=== PATIENT | female | born 1970 | race Caucasian/White ===

== ENCOUNTER 2019-12-26 10:40 | Emergency (ER) | payer BC, OTHER ==
[2019-12-26] MEDS ORDERED: TORAdol 30 mg Injection IV ONE (11:01)
[2019-12-26] MEDS ORDERED: Sodium Chloride 0.9% 1000 ML 1,000 ML IV STA (11:01)
[2019-12-26] MEDS ORDERED: BENADRYL 50 MG/ML IV ONE (11:01)
[2019-12-26] MEDS ORDERED: Zofran 4 MG/2 ML VIAL IV ONE (11:01)
[2019-12-26] MEDS ORDERED: TYLENOL 325 MG PO ONE (11:01)
[2019-12-26] MEDS ORDERED: DUONEB 0.5-3 MG/3 ml Neb IH ONE ×2 (11:07→11:49)
--- NOTE | 2019-12-26 11:10 | ERPHSYRPT ---
- History of Present Illness Time Seen by Provider: 12/26/19 10:55 Source: patient Exam Limitations: no limitations Patient Subjective Stated Complaint: Pt has pain by the right ear and it radiates down the right side of her neck, pt states that she had lost 75 pounds and they took her off of her blood pressure medicine and now her bp is running high, pt gets many head aches and Crystal [place] sent her to get a CT the other day that showed that she had had a stroke at one time, pt does have a cough Triage Nursing Assessment: Pt brought into the ER by her mother, hypertensive, tachycardic, rates head/neck pain 5/10, pulses normal Physician History: Patient has had a right-sided throbbing headache for the past 2 days. Patient has been having chronic headaches, with a CT scan performed 2 days ago by her primary care provider. Timing/Duration: day(s) (2) Quality: throbbing Head Pain Location: temporal, parietal Severity of Pain-Max: moderate Severity of Pain-Current: moderate Recent Head Trauma: no recent headache/trauma Associated Symptoms: neck pain, No confusion, No dizziness, No fatigue, No facial pain, No fever/chills, No flushing, No light-headedness, No loss of consciousness, No nausea/vomiting, No nasal congestion, No nasal drainage, No numbness in legs/feet, No rash, No sweating, No scotoma, No seizures, No sinus infection, No speech problems, No stiff neck, No trouble walking, No vision changes, No visual disturbance, No weakness Previous symptoms: same symptoms as today, recently seen Allergies/Adverse Reactions: No Known Drug Allergies Allergy (Verified 12/26/19 10:57) Home Medications: Levothyroxine Sodium 100 Mcg [Synthroid 100 Mcg] 100 mcg PO DAILY 12/19/16 [History] Dextroamphetamine/Amphetamine [Adderall 15 mg Tablet] 20 mg PO BID 07/15/17 [ History] Citalopram Hydrobromide [Citalopram HBr] 40 mg PO DAILY 12/26/19 [History] Ropinirole HCl 1 mg PO HS 12/26/19 [History] Hx Tetanus, Diphtheria Vaccination/Date Given: Yes Hx Influenza Vaccination/Date Given: Yes (July 2012) Hx Pneumococcal Vaccination/Date Given: No - Review of Systems Constitutional: No Fever, No Chills, No Fatigue, No Malaise Eyes: No Eye Pain, No Photophobia, No Vision Changes, No Double Vision Ears, Nose, & Throat: Ear Pain, No Ear Discharge, No Nose Congestion, No Nose Discharge, No Mouth Pain, No Mouth Swelling, No Throat Pain, No Painful Swallowing Respiratory: Cough, Other (treated with erythromycin, Tessalon perles and Prednisone last week for bronchitis), No Dyspnea Cardiac: No Chest Pain, No Edema, No Syncope Abdominal/Gastrointestinal: No Abdominal Pain, No Nausea, No Vomiting, No Diarrhea, No Hematemesis, No Hematochezia Genitourinary Symptoms: No Dysuria, No Hematuria, No Flank Pain Musculoskeletal: Neck Pain, No Back Pain, No Fall, No Joint Pain Skin: No Induration, No Rash Neurological: Headache, No Dizziness, No Focal Weakness, No Gait Changes, No Irritability, No Parasthesia, No Sensory Changes, No Speech Changes, No Tremors Psychological: No Anxiety, No Emotional Lability Endocrine: No Polyuria Hematologic/Lymphatic: No Easy Bleeding, No Easy Bruising All Other Systems: Reviewed and Negative - Past Medical History Pertinent Past Medical History: Yes Neurological History: Stroke ENT History: No Pertinent History Cardiac History: Other Respiratory History: No Pertinent History Endocrine Medical History: No Pertinent History Musculoskeletal History: No Pertinent History GI Medical History: Gallbladder Disease History: Other Psycho-Social History: Other Female Reproductive Disorders: Cervical Cancer Other Medical History: Kidney stones twice with lithotripsy. Cervical dysplasia with cauterization. Mitral valve prolapse. - Past Surgical History Past Surgical History: Yes Neuro Surgical History: No Pertinent History Cardiac: No Pertinent History Respiratory: No Pertinent History Gastrointestinal: Cholecystectomy Genitourinary: No Pertinent History Musculoskeletal: No Pertinent History Female Surgical History: Other Other Surgical History: Cervical dysplasia with ablation., skin cancer removal and plastic surgery on left eye - Social History Smoking Status: Current every day smoker Exposure to second hand smoke: Yes Drug Use: none Patient Lives Alone: No - Female History Hx Now: No (menopause) - Nursing Vital Signs Nursing Vital Signs: Initial Vital Signs Temperature 97.9 F 12/26/19 10:45 Pulse Rate 105 H 12/26/19 10:45 Blood Pressure 161/121 12/26/19 10:45 O2 Sat by Pulse Oximetry 100 12/26/19 10:45 Pain Scale Pain Intensity 1 - Physical Exam General Appearance: no apparent distress Eye Exam: PERRL/EOMI Ears, Nose, Throat Exam: normal ENT inspection, moist mucous membranes Neck Exam: normal inspection, non-tender, supple, full range of motion, No meningismus, No mass, No Brudzinski, No Kernig's, No JVD, No lymphadenopathy Respiratory Exam: normal breath sounds, lungs clear, airway intact, No respiratory distress, No diminished breath sounds, No accessory muscle use, No crackles/rales, No rhonchi, No wheezing Cardiovascular Exam: regular rate/rhythm, normal heart sounds, normal peripheral pulses, capillary refill <2 sec Gastrointestinal/Abdominal Exam: soft, No tenderness, No distention, No mass, No guarding Back Exam: normal inspection, normal range of motion, No CVA tenderness, No vertebral tenderness Extremity Exam: normal inspection, normal range of motion, pelvis stable Mental Status Exam: alert, oriented x 3, 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 Exam: normal speech, PERRL, No facial droop Coordination/Gait Exam: normal cerebellar function Motor/Sensory Exam: no motor deficit, no sensory deficit, No weak motor strength RUE, No weak motor strength LUE, No weak motor strength RLE, No weak motor strength LLE Skin Exam: normal color, warm, dry, No rash, No petechiae, No jaundice, No cyanosis Lymphatic Exam: No adenopathy SpO2 Interpretation: normal SpO2: 100 O2 Delivery: Room Air - Course Nursing assessment & vital signs reviewed: Yes - Radiology Exams C-Spine X-ray Interpretation: Interpreted by me, Reviewed by me, Nml Alignment, Nml Soft Tissues, Other (DDD from C5-T1; spondylolisthesis at C4-C5) Chest X-ray Interpretation: Interpreted by me, Reviewed by me, No Fracture ( and aa), No Subluxation (and a), No Pneumonia, No Pneumothorax, No Infiltrates, Nml Mediastinum, Nml Soft Tissues - CT Exams Head CT Interpretation: Other (Impression: Remote left basal ganglia lacunar infarct. Remaining CT head negative per Radiologist report on 12/24/2019) Ordered Tests: Active Orders 24 hr Category Date Time Status IV Insertion STAT Care 12/26/19 11:01 Active CERVICAL SPINE (2 OR 3 VIEW) Stat Exams 12/26/19 11:04 Ordered CHEST 1 VIEW (PORTABLE) Stat Exams 12/26/19 11:06 Ordered CBC W DIFF Stat Lab 12/26/19 11:01 Completed CMP Stat Lab 12/26/19 11:01 Completed Manual Differential NC Stat Lab 12/26/19 11:01 Completed Peak Expiratory Flow Rate ONCE RT 12/26/19 11:52 Completed Respiratory Therapy Assessment DAILY RT 12/26/19 11:52 Completed Medication Summary Discontinued Medications Generic Name Dose Route Start Last Admin Trade Name Luciana PRN Reason Stop Dose Admin Acetaminophen 975 mg 12/26/19 11:01 12/26/19 11:16 Tylenol 325 Mg PO 12/26/19 11:02 975 mg STAT ONE Administration Acetaminophen Confirm 12/26/19 11:14 Tylenol 325 Mg Administered 12/26/19 11:15 Dose 975 mg .ROUTE .STK-MED ONE Albuterol/Ipratropium 3 ml 12/26/19 11:07 12/26/19 11:51 Duoneb 0.5-3 Mg/3 Ml Neb IH 12/26/19 11:08 3 ml STAT ONE Administration Albuterol/Ipratropium Confirm 12/26/19 11:49 Duoneb 0.5-3 Mg/3 Ml Neb Administered 12/26/19 11:50 Dose 3 ml IH .STK-MED ONE Diphenhydramine HCl 25 mg 12/26/19 11:01 12/26/19 11:16 Benadryl 50 Mg/Ml IV 12/26/19 11:02 25 mg STAT ONE Administration Diphenhydramine HCl Confirm 12/26/19 11:14 Benadryl 50 Mg/Ml Administered 12/26/19 11:15 Dose 50 mg .ROUTE .STK-MED ONE Hydromorphone HCl 1 mg 12/26/19 11:01 12/26/19 11:31 Hydromorphone 1 Mg/Ml Ampule IV 12/26/19 11:02 Not Given STAT ONE Hydromorphone HCl Confirm 12/26/19 11:14 Hydromorphone 1 Mg/Ml Ampule Administered 12/26/19 11:15 Dose 1 mg .ROUTE .STK-MED ONE Sodium Chloride 1,000 mls @ 999 mls/hr 12/26/19 11:01 12/26/19 11:15 Sodium Chloride 0.9% 1000 Ml IV 12/26/19 12:01 999 mls/hr .Q1H1M STA Administration Sodium Chloride Confirm 12/26/19 11:14 Sodium Chloride 0.9% 1000 Ml Administered 12/26/19 11:15 Dose 1,000 mls @ ud .ROUTE .STK-MED ONE Ketorolac Tromethamine 30 mg 12/26/19 11:01 12/26/19 11:16 Toradol 30 Mg Injection IV 12/26/19 11:02 30 mg STAT ONE Administration Ketorolac Tromethamine Confirm 12/26/19 11:14 Toradol 30 Mg Injection Administered 12/26/19 11:15 Dose 30 mg .ROUTE .STK-MED ONE Ondansetron HCl 4 mg 12/26/19 11:01 12/26/19 11:16 Zofran 4 Mg/2 Ml Vial IV 12/26/19 11:02 4 mg STAT ONE Administration Ondansetron HCl Confirm 12/26/19 11:14 Zofran 4 Mg/2 Ml Vial Administered 12/26/19 11:15 Dose 4 mg .ROUTE .STK-MED ONE Potassium Chloride 40 meq 12/26/19 11:50 Klor Con 10 Meq PO 12/26/19 11:51 STAT ONE Lab/Rad Data: Laboratory Result Diagrams 12/26/19 11:01 12/26/19 11:01 Laboratory Results 12/26/19 12/26/19 Range/Units 11:01 11:01 WBC 12.1 H (4.0-10.5) K/mm3 RBC 4.80 (4.1-5.4) M/mm3 Hgb 13.9 (12.0-16.0) gm/dl Hct 42.3 (35-47) % MCV 88.1 (78-100) fl MCH 29.0 (26-32) pg MCHC 32.9 (32-36) g/dl RDW 14.5 H (11.5-14.0) % Plt Count 311 (150-450) K/mm3 MPV 10.0 (7.5-11.0) fl Sodium 140 (137-145) mmol/L Potassium 3.2 L (3.5-5.1) mmol/L Chloride 103 (98-107) mmol/L Carbon Dioxide 31 H (22-30) mmol/L Anion Gap 8.9 (5-15) MEQ/L BUN 17 (7-17) mg/dL Creatinine 0.83 (0.52-1.04) mg/dL Estimated GFR > 60.0 ML/MIN Glucose 107 H (74-106) mg/dL Calcium 9.4 (8.4-10.2) mg/dL Total Bilirubin 0.40 (0.2-1.3) mg/dL AST 36 (14-36) U/L ALT 17 (0-35) U/L Alkaline Phosphatase 87 (38-126) U/L Serum Total Protein 7.6 (6.3-8.2) g/dL Albumin 4.2 (3.5-5.0) g/dL - Progress Progress: re-examined Air Movement: good Progress Note: 12/26/19 12:12 pain has resolved;no neurologic deficits; the patient is afebrile, hemodynamically in good condition with resolution of tachycardia; clear to auscultation throughout with improved air flow throughout with no wheeze, rales , crackles on repeat examination. 12/26/19 12:22 patient has had a headache oover last few days which is a flare of her chronic type headaches. Clinically, it is very consistent with a migraine-type headache. Patient had a CT scan of the head 2 days ago that was negative for any acute features, but did show signs of an old infarct. Patient x-rays of her neck and she complains of some pain in her neck and no signs of any other infectious etiology, and the x-ray did show some signs of degenerative disc disease. A chest x-ray was also pperformed as patient had a cough over the past week and was placed on antibiotics, so she was treated with DuoNeb treatment and it was interpreted as a negative chest x-ray per my interpretation. patient not require any other lab work or imaging studies at this time regarding need for a lumbar puncture due to her clinical picture is very low risk for infectious or vascular etiology causing her symptoms. Patient discharged home as her headache was resolved with IV fluids and IV medications in the emergency department. Patient is to followup with her dentist as well as her primary care provider to continue evaluating other potential etiologies of her headaches.. I reviewed with the patient and her family in detail what signs and symptoms to return back to the emergency department. Blood Culture(s) Obtained: No Antibiotics given: No Counseled pt/family regarding: lab results, diagnosis, need for follow-up, rad results - Departure Departure Disposition: Home Clinical Impression: Elevated blood pressure reading without diagnosis of hypertension, Hypokalemia Migraine headache without aura Qualifiers: Status migrainosus presence: with status migrainosus Intractability: not intractable Qualified Code(s): G43.001 - Migraine without aura, not intractable , with status migrainosus Acute bronchitis Qualifiers: Bronchitis organism: unspecified organism Qualified Code(s): J20.9 - Acute bronchitis, unspecified Condition: Good Critical Care Time: No Referrals: NURIA CUBA [Primary Care Provider] - 12/28/19 Instructions: DASH Diet, Acute Bronchitis, Adult (DC), Headache, Adult (DC), Hypokalemia (DC) Additional Instructions: Followup with your dentist who fitted you in 2 days.Return immediately back to the emergency Department if any worse headache, new fever, new change in mental status,or new neck pain, new skin rash, or any other concerning signs or symptoms that were not present at todays emergency Department visit for immediate reevaluation in the emergency department. Prescriptions: Albuterol Sulfate [Proair Hfa] 8.5 gm IH Q4H PRN PRN #1 [email or web address] PRN Reason: Wheezing/Chest Congestion Etodolac 400 mg [Lodine 400 mg] 400 mg PO BID PRN PRN #20 tablet PRN Reason: Pain
[2019-12-26] MEDS ORDERED: TORAdol 30 mg Injection ONE (11:14)
[2019-12-26] MEDS ORDERED: BENADRYL 50 MG/ML ONE (11:14)
[2019-12-26] MEDS ORDERED: Sodium Chloride 0.9% 1000 ML 1,000 ML ONE (11:14)
[2019-12-26] MEDS ORDERED: Zofran 4 MG/2 ML VIAL ONE (11:14)
[2019-12-26] MEDS ORDERED: Hydromorphone 1 mg/ml Ampule ONE (11:14)
[2019-12-26] MEDS ORDERED: TYLENOL 325 MG ONE (11:14)
[2019-12-26] MEDS: Hydromorphone 1 mg/ml Ampule IV ONE ×2 (11:16→11:31)
[2019-12-26 11:18] LABS: Hematocrit 42.3 % (35-47); Hemoglobin 13.9 gm/dl (12.0-16.0); Mean Cell Volume 88.1 fl (78-100); Mean Corpuscular Hgb Concent. 32.9 g/dl (32-36); Platelet Count 311 K/mm3 (150-450); Red Cell Distribution Width 14.5 % (11.5-14.0); White Blood Count 12.1 K/mm3 (4.0-10.5)
[2019-12-26 11:40] LABS: ALBUMIN 4.2 g/dL (3.5-5.0); ALKALINE PHOSPHATASE 87 U/L (38-126); ANION GAP 8.9 MEQ/L (5-15); BLOOD UREA NITROGEN 17 mg/dL (7-17); CHLORIDE 103 mmol/L (98-107); Calcium 9.4 mg/dL (8.4-10.2); Carbon Dioxide 31 mmol/L (22-30); Creatinine 1 0.83 mg/dL (0.52-1.04); Glucose 107 mg/dL (74-106); Potassium 3.2 mmol/L (3.5-5.1); SGOT/AST 36 U/L (14-36); SGPT/ALT 17 U/L (0-35); SODIUM 140 mmol/L (137-145); Total Protein 7.6 g/dL (6.3-8.2)
[2019-12-26 11:43] VITALS: BP 148/109
[2019-12-26] MEDS ORDERED: Klor Con 10 MEQ PO ONE ×2 (11:50→12:22)
[2019-12-26 12:04] VITALS: PULSE 91
[2019-12-26 12:13] VITALS: O2SAT 100
[2019-12-26 13:59] LABS: ATYPICAL LYMPHS 4 %; BAND 3 % (0.0-2.0); Eosinophil 1 % (0.00-3.0); Lymphocytes 39 % (24-44); Monocyte 1 % (0.0-12.0); Neutrophils 52 % (36.0-66.0); Total Cells Counted 100
[2019-12-26 14:00] LABS: ANISOCYTOSIS 1+; Platelet Estimate NORMAL (NORMAL); Toxic Granulation 1+
--- NOTE | 2019-12-26 20:52 | XRAY ---
Indication: Neck pain and headache. No known injury. Comparison: December 11, 2011. 3 views of the cervical spine again demonstrates very minimal C4 anterolisthesis. Worsening mild/moderate C5-T1 degenerative disc disease and mild scoliosis. No acute fracture, subluxation, or soft tissue abnormalities. Patient is edentulous. Impression: Nonacute cervical spine with chronic features.
--- NOTE | 2019-12-26 20:55 | XRAY ---
Indication: Cough. Comparison: December 19, 2016. Portable chest remains clear. Heart and mediastinal structures within normal limits. Bony thorax intact with new finding for old left 7 rib fracture. Stable scoliosis. Impression: Nonacute chest with chronic features.
== END 2019-12-26 12:29 | disposition home or self-care (01) ==
LOC: ED 10:40
DX: R03.0 Elevated blood-pressure reading, without diagnosis of hypertension (principal); E87.6 Hypokalemia; G43.001 Migraine without aura, not intractable, with status migrainosus; J20.9 Acute bronchitis, unspecified; M54.2 Cervicalgia; Z79.899 Other long term (current) drug therapy; R05 Cough
CPT/HCPCS: 36000; 36415; 71045; 72040; 80053; 85025; 94150; 94640; 96375; 99284; J1170; J1200; J1885; J2405; A9270-GY

== ENCOUNTER 2021-07-30 18:54 | Emergency (ER) | payer OTHER ==
[2021-07-30] MEDS ORDERED: TORAdol 30 mg Injection IV ONE (19:29)
[2021-07-30] MEDS ORDERED: Sodium Chloride 0.9% 500 ML 500 ML IV ONE ×2 (19:30→19:31)
[2021-07-30] MEDS ORDERED: TORAdol 30 mg Injection ONE (19:31)
[2021-07-30 19:52] LABS: Absolute Neutrophil Ct (ANC) 5.51 (1.4-6.9); BASOPHIL % 0.3 % (0.0-0.4); Basophil (Absolute #) 0.03 (0-0.4); Eosinophil % 2.7 % (0.00-5.0); Eosinophil (Absolute #) 0.28 (0-0.5); Hematocrit 43.6 % (35-47); Hemoglobin 13.9 gm/dl (12.0-16.0); Lymphocytes % 37.2 % (24.0-44.0); Mean Cell Volume 93.2 fl (78-100); Mean Corpuscular Hemoglobin 29.7 pg (26-32); Mean Corpuscular Hgb Concent. 31.9 g/dl (32-36); Monocyte (Absolute #) 0.77 (0.0-1.3); Monocytes % 7.3 % (0.0-12.0); Neutrophil % 52.5 % (36.0-66.0); Platelet Count 271 K/mm3 (150-450); Red Blood Count 4.68 M/mm3 (4.1-5.4); Red Cell Distribution Width 14.3 % (11.5-14.0); White Blood Count 10.5 K/mm3 (4.0-10.5)
[2021-07-30 20:00] LABS: Appearance CLOUDY (CLEAR); Bacteria MODERATE /HPF (NEGATIVE); Bilirubin NEGATIVE (NEGATIVE); Blood NEGATIVE Ery/ul (0-5); Calcium Oxalate Crystals 26-50 /HPF (NEGATIVE); Epithelial Cells FEW /HPF (FEW); Glucose NEGATIVE (NEGATIVE); Ketones TRACE (NEGATIVE); Leukocyte Esterase LARGE (NEGATIVE); Mucus SLIGHT /HPF (NEGATIVE); Nitrite NEGATIVE (NEGATIVE); Protein,Urine Dip 100 (Negative); RBC 51-100 /HPF (0-2); Specific Gravity 1.031 (1.005-1.025); Urobilinogen NEGATIVE mg/dL (0-1); WBC >100 /HPF (0-5)
[2021-07-30 20:02] LABS: ALBUMIN 4.5 g/dL (3.5-5.0); ALKALINE PHOSPHATASE 68 U/L (38-126); ANION GAP 14.2 MEQ/L (5-15); BLOOD UREA NITROGEN 17 mg/dL (7-17); CHLORIDE 104 mmol/L (98-107); Calcium 9.7 mg/dL (8.4-10.2); Carbon Dioxide 27 mmol/L (22-30); Creatinine 1 0.93 mg/dL (0.52-1.04); EST GLOMERULAR FILTRATION RATE > 60.0 ML/MIN; Glucose 98 mg/dL (74-106); LIPASE 69 U/L (23-300); Potassium 3.4 mmol/L (3.5-5.1); SGOT/AST 33 U/L (14-36); SGPT/ALT 16 U/L (0-35); SODIUM 142 mmol/L (137-145); Total Protein 7.6 g/dL (6.3-8.2)
[2021-07-30] MEDS ORDERED: ROCEPHIN 2 Gm-D5w 50ML BAG** 2 G/50 ML IVPB IV STA (20:35)
--- NOTE | 2021-07-30 20:38 | ERPHSYRPT ---
- History of Present Illness Time Seen by Provider: 07/30/21 19:08 Historian: patient Exam Limitations: no limitations Patient Subjective Stated Complaint: pt states she has been having lt lower back and groin pain for 3-4 days. Triage Nursing Assessment: pt alert and oriented, answers questions approp. pt ambulatory with steady gait noted. skin warm and dry. respirations nonlabored. abd soft and nontender to light palpation. bowel sounds present x4 quads. Physician History: 51 years old female presented in the ER with chief complaint of left flank pain for the last 2 to 3 days, moderate to severe intensity, sharp nature, radiating to left groin with associated mild nausea but no vomiting. Denies any urinary symptoms. Patient does report laxative abuse. No fever or chills reported. Does have a history of kidney stone needing lithotripsy. Timing/Duration: day(s) (2), gradual onset, worse Activities at Onset: rest Quality: sharpness Abdominal Pain Onset Location: flank Pain Radiation: groin Severity of Pain-Max: moderate Severity of Pain-Current: moderate Modifying Factors: Worsens With: movement, palpation, position Associated Symptoms: back, nausea Previous symptoms: same symptoms as today Allergies/Adverse Reactions: No Known Drug Allergies Allergy (Verified 07/30/21 19:28) Home Medications: Levothyroxine Sodium 100 Mcg [Synthroid 100 Mcg] 88 mcg PO DAILY 12/19/16 [History] Dextroamphetamine/Amphetamine [Adderall 15 mg Tablet] 20 mg PO BID 07/15/17 [History] Citalopram Hydrobromide [Citalopram HBr] 40 mg PO DAILY 12/26/19 [History] Ropinirole HCl 1 mg PO HS 12/26/19 [History] Calcium Carbonate/Vitamin D3 [Calcium 600 + Vit D Caplet] 1 each PO DAILY 07/30/21 [History] Metoprolol Succinate 50 mg [Toprol Xl 50 MG] 50 mg PO DAILY 07/30/21 [History] Potassium Chloride 10 Meq Tab* [Klor Con 10 MEQ] 20 meq PO DAILY 07/30/21 [History] Hx Tetanus, Diphtheria Vaccination/Date Given: Yes Hx Influenza Vaccination/Date Given: No Hx Pneumococcal Vaccination/Date Given: No Immunizations Up to Date: Yes Travel Risk - International Travel Have you traveled outside of the country in past 3 weeks: No - Coronavirus Screening Are you exhibiting any of the following symptoms?: No Close contact with a COVID-19 positive Pt in past 14-21 Days: No - Vaccine Status Have you recieved a Covid-19 vaccination: No - Review of Systems Constitutional: No Symptoms Eyes: No Symptoms Ears, Nose, & Throat: No Symptoms Respiratory: No Symptoms Cardiac: No Symptoms Abdominal/Gastrointestinal: Abdominal Pain, Nausea Genitourinary Symptoms: Flank Pain Musculoskeletal: No Symptoms Skin: No Symptoms Neurological: No Symptoms Psychological: No Symptoms Endocrine: No Symptoms Hematologic/Lymphatic: No Symptoms Immunological/Allergic: No Symptoms - Past Medical History Pertinent Past Medical History: Yes Neurological History: Stroke ENT History: No Pertinent History Cardiac History: Other Respiratory History: No Pertinent History Endocrine Medical History: No Pertinent History Musculoskeletal History: Rheumatoid Arthritis GI Medical History: Gallbladder Disease History: Other Psycho-Social History: Other Female Reproductive Disorders: Cervical Cancer Other Medical History: Kidney stones twice with lithotripsy. Cervical dysplasia with cauterization. Mitral valve prolapse. - Past Surgical History Past Surgical History: Yes Neuro Surgical History: No Pertinent History Cardiac: No Pertinent History Respiratory: No Pertinent History Gastrointestinal: Cholecystectomy Genitourinary: No Pertinent History Musculoskeletal: No Pertinent History Female Surgical History: Other Other Surgical History: Cervical dysplasia with ablation., skin cancer removal and plastic surgery on left eye - Social History Smoking Status: Current every day smoker How long have you smoked: 4yrs+ Exposure to second hand smoke: Yes Drug Use: none Patient Lives Alone: No - Female History Hx Now: No - Nursing Vital Signs Nursing Vital Signs: Initial Vital Signs Temperature 98.5 F 07/30/21 19:08 Pulse Rate 91 H 07/30/21 19:08 Respiratory Rate 16 07/30/21 19:08 Blood Pressure 139/94 07/30/21 19:08 O2 Sat by Pulse Oximetry 97 07/30/21 19:08 Pain Scale Pain Intensity 7 - Physical Exam General Appearance: no apparent distress Eye Exam: PERRL/EOMI Ears, Nose, Throat Exam: normal ENT inspection Neck Exam: normal inspection, full range of motion Respiratory Exam: normal breath sounds, lungs clear Cardiovascular Exam: regular rate/rhythm, normal heart sounds Gastrointestinal/Abdomen Exam: soft, normal bowel sounds, tenderness (Left flank/left lower quadrant without rebound tenderness. Positive CVA tenderness on the left) Back Exam: normal inspection, normal range of motion, CVA tenderness Extremity Exam: normal inspection, normal range of motion Neurologic Exam: alert, oriented x 3, cooperative Skin Exam: normal color SpO2 Interpretation: normal SpO2: 97 O2 Delivery: Room Air Ordered Tests: Active Orders 24 hr Category Date Time Status IV Insertion STAT Care 07/30/21 19:29 Active NPO (ED) STAT Care 07/30/21 19:29 Active ABDOMEN AND PELVIS W/0 CONTRAS [CT] Stat Exams 07/30/21 19:29 Taken CBC W DIFF Stat Lab 07/30/21 19:31 Completed CMP Stat Lab 07/30/21 19:31 Completed CULTURE,URINE Stat Lab 07/30/21 19:31 Received LIPASE Stat Lab 07/30/21 19:31 Completed UA W/RFX UR CULTURE Stat Lab 07/30/21 19:31 Completed Medication Summary Discontinued Medications Generic Name Dose Route Start Last Admin Trade Name Freq PRN Reason Stop Dose Admin Hydrocodone Bitart/Acetaminophen 1 tab 07/30/21 21:32 07/30/21 21:34 [place] 5/325 Mg PO 07/30/21 21:33 1 tab STAT ONE Administration Hydrocodone Bitart/Acetaminophen Confirm 07/30/21 21:33 [place] 5/325 Mg Administered 07/30/21 21:34 Dose 1 tab .ROUTE .STK-MED ONE Sodium Chloride 500 mls @ 500 mls/hr 07/30/21 19:30 07/30/21 20:34 Sodium Chloride 0.9% 500 Ml IV 07/30/21 20:29 Infused .Q1H ONE Infusion Sodium Chloride Confirm 07/30/21 19:31 Sodium Chloride 0.9% 500 Ml Administered 07/30/21 19:32 Dose 500 mls @ ud IV .STK-MED ONE Ceftriaxone Sodium/Dextrose 2 g in 50 mls @ 100 mls/hr 07/30/21 20:35 07/30/21 21:29 Rocephin 2 Gm-D5w 50ml Bag IV 07/30/21 21:04 Infused STAT STA Infusion Ceftriaxone Sodium/Dextrose Confirm 07/30/21 20:57 Rocephin 2 Gm-D5w 50ml Bag Administered 07/30/21 20:58 Dose 2 g in 50 mls @ ud IV .STK-MED ONE Ketorolac Tromethamine 30 mg 07/30/21 19:29 07/30/21 19:34 Toradol 30 Mg Injection IV 07/30/21 19:30 30 mg STAT ONE Administration Ketorolac Tromethamine Confirm 07/30/21 19:31 Toradol 30 Mg Injection Administered 07/30/21 19:32 Dose 30 mg .ROUTE .STK-MED ONE Lab/Rad Data: Laboratory Result Diagrams 07/30/21 19:31 07/30/21 19:31 Laboratory Results 07/30/21 07/30/21 07/30/21 Range/Units 19:31 19:31 19:31 WBC 10.5 (4.0-10.5) K/mm3 RBC 4.68 (4.1-5.4) M/mm3 Hgb 13.9 (12.0-16.0) gm/dl Hct 43.6 (35-47) % MCV 93.2 (78-100) fl MCH 29.7 (26-32) pg MCHC 31.9 L (32-36) g/dl RDW 14.3 H (11.5-14.0) % Plt Count 271 (150-450) K/mm3 MPV 11.0 (7.5-11.0) fl Gran % 52.5 (36.0-66.0) % Eos # (Auto) 0.28 (0-0.5) Absolute Lymphs (auto) 3.90 (1.0-4.6) Absolute Monos (auto) 0.77 (0.0-1.3) Lymphocytes % 37.2 (24.0-44.0) % Monocytes % 7.3 (0.0-12.0) % Eosinophils % 2.7 (0.00-5.0) % Basophils % 0.3 (0.0-0.4) % Absolute Granulocytes 5.51 (1.4-6.9) Basophils # 0.03 (0-0.4) Sodium 142 (137-145) mmol/L Potassium 3.4 L (3.5-5.1) mmol/L Chloride 104 (98-107) mmol/L Carbon Dioxide 27 (22-30) mmol/L Anion Gap 14.2 (5-15) MEQ/L BUN 17 (7-17) mg/dL Creatinine 0.93 (0.52-1.04) mg/dL Estimated GFR > 60.0 ML/MIN Glucose 98 (74-106) mg/dL Calcium 9.7 (8.4-10.2) mg/dL Total Bilirubin 0.40 (0.2-1.3) mg/dL AST 33 (14-36) U/L ALT 16 (0-35) U/L Alkaline Phosphatase 68 (38-126) U/L Serum Total Protein 7.6 (6.3-8.2) g/dL Albumin 4.5 (3.5-5.0) g/dL Lipase 69 (23-300) U/L Urine Color FRANCES (YELLOW) Urine Appearance CLOUDY (CLEAR) Urine pH 5.0 (5-6) Ur Specific [place] 1.031 (1.005-1.025) Urine Protein 100 (Negative) Urine Ketones TRACE (NEGATIVE) Urine Blood NEGATIVE (0-5) Tomas/ul Urine Nitrite NEGATIVE (NEGATIVE) Urine Bilirubin NEGATIVE (NEGATIVE) Urine Urobilinogen NEGATIVE (0-1) mg/dL Ur Leukocyte Esterase LARGE (NEGATIVE) Urine WBC (Auto) >100 (0-5) /HPF Urine RBC (Auto) 51-100 (0-2) /HPF U Epithel Cells (Auto) FEW (FEW) /HPF Urine Bacteria (Auto) MODERATE (NEGATIVE) /HPF Calcium Oxalate Crystal 26-50 (NEGATIVE) /HPF Urine Mucus (Auto) SLIGHT (NEGATIVE) /HPF Urine Culture Reflexed YES (NO) Urine Glucose NEGATIVE (NEGATIVE) mg/dL - Progress Progress: improved, re-examined Progress Note: 07/30/21 21:51 She is given fluids and symptomatic treatment for pain, reevaluation feeling much better. She had normal white count, grossly unremarkable chemistry. Does have UTI with hematuria and given dose of antibiotic. CT negative for any acute obstructive uropathy. No other acute findings. Is quite possible that she might have passed a stone recently. I would continue with antibiotics and ibuprofen to go home and outpatient follow-up recommended. Discussed signs symp toms of worsening needing return to ER which she seems understanding. Stable for discharge. Counseled pt/family regarding: diagnosis, need for follow-up, rad results - Departure Departure Disposition: Home Clinical Impression: Acute UTI, Left flank pain Condition: Stable Critical Care Time: No Referrals: NURIA PERALES NP [Primary Care Provider] - Follow Up with PCP/3 days Instructions: Kidney Stones (DC), Flank Pain Additional Instructions: Take Tylenol/ibuprofen as needed. Continue with antibiotics. Follow-up with your primary care for reevaluation. Return to ER for worsening pain or if develop fever chills, intractable nausea vomiting etc. Prescriptions: Ibuprofen 600 mg PO Q6HPRN PRN 10 Days #20 tablet PRN Reason: Pain Ciprofloxacin [Cipro 500 MG] 500 mg PO BID #14 tablet
[2021-07-30] MEDS ORDERED: ROCEPHIN 2 Gm-D5w 50ML BAG** 2 G/50 ML IVPB IV ONE (20:57)
[2021-07-30] MEDS ORDERED: NORCO 5/325 MG PO ONE (21:32)
[2021-07-30] MEDS ORDERED: NORCO 5/325 MG ONE (21:33)
[2021-07-30 22:07] VITALS: BP 123/73; PULSE 68; O2SAT 98
--- NOTE | 2021-07-31 08:48 | XRAY ---
Indication: Left flank pain. Multiple contiguous axial images obtained through the abdomen and pelvis without contrast. Comparison: December 29, 2014. Lungs demonstrates minimal bibasilar subsegmental atelectasis/scarring. No infiltrate or effusion. Heart is not enlarged. Stomach is distended with food/fluid. Increasing 11 mm left renal calculus and 2-3 new right renal calculi largest 9 mm. No hydronephrosis or hydroureter. Again cholecystectomy and splenic calcified granulomas. No free fluid/air. Remaining liver, pancreas, spleen, adrenal glands, kidneys, ureters, bladder, and uterus are unremarkable for noncontrast exam. Again minimal aortic calcifications without AAA. Osseous structures intact again with mild dextrorotoscoliosis centered at L3, mild/moderate multilevel lumbar degenerative spondylosis, and L5 spondylolysis with grade 1 spondylolisthesis. Impression: 1. Worsening bilateral renal micro-calculi. Negative for obstructive uropathy. 2. Again chronic bony findings old granulomatous disease. 3. Remaining CT abdomen/pelvis without contrast exam is negative. Comment: Preliminary interpretation made by [facility]. No critical discrepancy.
== END 2021-07-30 22:10 | disposition home or self-care (01) ==
LOC: ED 18:54
DX: N39.0 Urinary tract infection, site not specified (principal); R10.9 Unspecified abdominal pain; R11.0 Nausea
CPT/HCPCS: 36000; 36415; 74176; 80053; 81001; 83690; 85025; 87077; 87086; 87186; 96374; 96375; 99284; J0696; J1885; A9270-GY

== ENCOUNTER 2021-08-07 19:31 | Emergency (ER) | payer OTHER ==
[2021-08-07] MEDS ORDERED: TORAdol 30 mg Injection IV ONE (19:48)
[2021-08-07] MEDS ORDERED: Sodium Chloride 0.9% 1000 ML 1,000 ML IV STA (19:48)
[2021-08-07] MEDS ORDERED: Sodium Chloride 0.9% 1000 ML 1,000 ML ONE (20:03)
[2021-08-07] MEDS ORDERED: TORAdol 30 mg Injection ONE (20:03)
[2021-08-07 20:08] LABS: Appearance SLIGHTLY CLOUDY (CLEAR); Bacteria FEW /HPF (NEGATIVE); Bilirubin NEGATIVE (NEGATIVE); Blood SMALL Ery/ul (0-5); Calcium Oxalate Crystals 0-2 /HPF (NEGATIVE); Epithelial Cells FEW /HPF (FEW); Glucose NEGATIVE (NEGATIVE); Ketones NEGATIVE (NEGATIVE); Leukocyte Esterase LARGE (NEGATIVE); Mucus SLIGHT /HPF (NEGATIVE); Nitrite NEGATIVE (NEGATIVE); Protein,Urine Dip 100 (Negative); RBC 26-50 /HPF (0-2); Specific Gravity 1.024 (1.005-1.025); Urobilinogen NEGATIVE mg/dL (0-1); WBC 51-100 /HPF (0-5)
--- NOTE | 2021-08-07 20:13 | ERPHSYRPT ---
- History of Present Illness Time Seen by Provider: 08/07/21 19:35 Historian: patient Exam Limitations: no limitations Patient Subjective Stated Complaint: Patient states " I continue to have severe back and left flank pain despite ATB for UTI and non-obstructing stones and I don't know what else to do." Triage Nursing Assessment: Patient arrived to ED and ambulated to room with holding onto left side. Patient did give urine sample prior to going into room. Urine yellow in color slightly cloudy. Patient was in ER 07/30/21 and was DX with UTI and kidney stones. Patient was placed on ATB and then she seen PCP couple days later and they switched ATB R/T culture. Patient denies any pain or burning upon urination. Patient with ABD pain on left side when RN palpitated and pain radiated to left flank. Patient denies any injury or trauma to ABD or flank. Patient denies any N/V. Patient denies any indigestion. Patient states appetite and fluid intake is normal. Physician History: Patient is a 51-year-old female presents to our ED for evaluation of left-sided flank pain. Patient was in our ED on the approximately 8 days ago for the same. She was diagnosed with nonobstructing bilateral kidney stones and a u rinary tract infection. Patient was started on ciprofloxacin. Patient states she has been experiencing ongoing pain. Cultures and sensitivities show sensitivity to Levaquin. Patient follow-up with her primary provider 2 days ago. Patient was switched from ciprofloxacin to Bactrim. Patient has been on Bactrim for the past 2 days. Patient's pain described as an ache has localized to the left flank. Pain rated 10 out of 10. No interval trauma no fever. No nausea or vomiting. Symptoms are mild to moderate in intensity. Percussion to left CVA produces pain. Patient denies associated chest pain no nausea or vomiting. No diaphoresis. No diarrhea. No rash. Patient voices no other co mplaints or concerns at this time. Timing/Duration: week(s) (8 days) Activities at Onset: none Quality: aching Abdominal Pain Onset Location: flank, other (Left flank) Pain Radiation: no radiation Severity of Pain-Max: moderate Severity of Pain-Current: mild Modifying Factors: Improves With: palpation Associated Symptoms: denies symptoms Previous symptoms: same symptoms as today Allergies/Adverse Reactions: No Known Drug Allergies Allergy (Verified 07/30/21 19:28) Home Medications: Levothyroxine Sodium 100 Mcg [Synthroid 100 Mcg] 88 mcg PO DAILY 12/19/16 [History] Dextroamphetamine/Amphetamine [Adderall 15 mg Tablet] 20 mg PO BID 07/15/17 [History] Citalopram Hydrobromide [Citalopram HBr] 40 mg PO DAILY 12/26/19 [History] Ropinirole HCl 1 mg PO HS 12/26/19 [History] Calcium Carbonate/Vitamin D3 [Calcium 600 + Vit D Caplet] 1 each PO DAILY 07/30/21 [History] Metoprolol Succinate 50 mg [Toprol Xl 50 MG] 50 mg PO DAILY 07/30/21 [History] Potassium Chloride 10 Meq Tab* [Klor Con 10 MEQ] 20 meq PO DAILY 07/30/21 [History] Hx Tetanus, Diphtheria Vaccination/Date Given: Yes Hx Influenza Vaccination/Date Given: No Hx Pneumococcal Vaccination/Date Given: No Immunizations Up to Date: Yes Travel Risk - International Travel Have you traveled outside of the country in past 3 weeks: No - Coronavirus Screening Close contact with a COVID-19 positive Pt in past 14-21 Days: No - Vaccine Status Have you recieved a Covid-19 vaccination: No - Review of Systems Constitutional: No Symptoms, No Fever, No Chills Eyes: No Symptoms Ears, Nose, & Throat: No Symptoms Respiratory: No Symptoms, No Cough, No Dyspnea Cardiac: No Symptoms, No Chest Pain, No Edema, No Syncope Abdominal/Gastrointestinal: No Symptoms, No Abdominal Pain, No Nausea, No Vomiting, No Diarrhea Genitourinary Symptoms: No Symptoms, No Dysuria Musculoskeletal: No Symptoms, No Back Pain, No Neck Pain Skin: No Symptoms, No Rash Neurological: No Symptoms, No Dizziness, No Focal Weakness, No Sensory Changes Psychological: No Symptoms Endocrine: No Symptoms Hematologic/Lymphatic: No Symptoms Immunological/Allergic: No Symptoms All Other Systems: Reviewed and Negative - Past Medical History Pertinent Past Medical History: Yes Neurological History: Stroke ENT History: No Pertinent History Cardiac History: Other Respiratory History: No Pertinent History Endocrine Medical History: No Pertinent History Musculoskeletal History: Rheumatoid Arthritis GI Medical History: Gallbladder Disease History: Other Psycho-Social History: Other Female Reproductive Disorders: Cervical Cancer Other Medical History: Kidney stones twice with lithotripsy. Cervical dysplasia with cauterization. Mitral valve prolapse. - Past Surgical History Past Surgical History: Yes Neuro Surgical History: No Pertinent History Cardiac: No Pertinent History Respiratory: No Pertinent History Gastrointestinal: Cholecystectomy Genitourinary: No Pertinent History Musculoskeletal: No Pertinent History Female Surgical History: Other Other Surgical History: Cervical dysplasia with ablation., skin cancer removal and plastic surgery on left eye - Social History Smoking Status: Current every day smoker How long have you smoked: 4yrs+ Exposure to second hand smoke: Yes Drug Use: none Patient Lives Alone: No - Female History Hx Last Menstrual Period: POST - Nursing Vital Signs Nursing Vital Signs: Initial Vital Signs Temperature 98.6 F 08/07/21 19:31 Pulse Rate 98 H 08/07/21 19:31 Respiratory Rate 18 08/07/21 19:31 Blood Pressure 129/94 08/07/21 19:31 O2 Sat by Pulse Oximetry 99 08/07/21 19:31 Pain Scale Pain Intensity 5 - Physical Exam General Appearance: no apparent distress, alert Eye Exam: PERRL/EOMI, eyes nml inspection Ears, Nose, Throat Exam: normal ENT inspection, pharynx normal, moist mucous membranes Neck Exam: normal inspection, non-tender, supple, full range of motion Respiratory Exam: normal breath sounds, lungs clear, airway intact, No respiratory distress Cardiovascular Exam: regular rate/rhythm, normal heart sounds, normal peripheral pulses Gastrointestinal/Abdomen Exam: soft, tenderness, other (Left-sided flank pain. Left-sided CVA tenderness.), No mass Back Exam: normal inspection, normal range of motion, No CVA tenderness, No vertebral tenderness Extremity Exam: normal inspection, normal range of motion, pelvis stable Neurologic Exam: alert, oriented x 3, cooperative, normal mood/affect, sensation nml, No motor deficits Skin Exam: normal color, warm, dry SpO2 Interpretation: normal SpO2: 99 O2 Delivery: Room Air - Course Nursing assessment & vital signs reviewed: Yes - CT Exams Abdomen/Pelvis CT Interpretation: Tele-radiologist Report (No change compared to CT 8 days ago. Nonobstructing bilateral renal calculi no new acute findings.) Ordered Tests: Active Orders 24 hr Category Date Time Status IV Insertion STAT Care 08/07/21 19:48 Active ABDOMEN AND PELVIS W/0 CONTRAS [CT] Stat Exams 08/07/21 19:48 Taken CBC W DIFF Stat Lab 08/07/21 08:12 Completed CMP Stat Lab 08/07/21 08:12 Completed CULTURE,URINE Stat Lab 08/07/21 19:51 Received Manual Differential NC Stat Lab 08/07/21 08:12 Completed UA W/RFX UR CULTURE Stat Lab 08/07/21 19:51 Completed Medication Summary Discontinued Medications Generic Name Dose Route Start Last Admin Trade Name Luciana PRN Reason Stop Dose Admin Sodium Chloride 1,000 mls @ 999 mls/hr 08/07/21 19:48 08/07/21 20:05 Sodium Chloride 0.9% 1000 Ml IV 08/07/21 20:48 999 mls/hr .Q1H1M STA Administration Ketorolac Tromethamine 30 mg 08/07/21 19:48 08/07/21 20:05 Ketorolac Tromethamine 30 Mg/Ml Inj IV 08/07/21 19:49 30 mg STAT ONE Administration Lab/Rad Data: Laboratory Result Diagrams 08/07/21 08:12 08/07/21 08:12 Laboratory Results 08/07/21 08/07/21 08/07/21 Range/Units 19:51 08:12 08:12 WBC 9.2 (4.0-10.5) K/mm3 RBC 4.17 (4.1-5.4) M/mm3 Hgb 12.6 (12.0-16.0) gm/dl Hct 38.5 (35-47) % MCV 92.3 (78-100) fl MCH 30.2 (26-32) pg MCHC 32.7 (32-36) g/dl RDW 14.1 H (11.5-14.0) % Plt Count 237 (150-450) K/mm3 MPV 10.4 (7.5-11.0) fl Sodium 136 L (137-145) mmol/L Potassium 4.2 (3.5-5.1) mmol/L Chloride 102 (98-107) mmol/L Carbon Dioxide 28 (22-30) mmol/L Anion Gap 10.6 (5-15) MEQ/L BUN 17 (7-17) mg/dL Creatinine 1.10 H (0.52-1.04) mg/dL Estimated GFR 55.4 ML/MIN Glucose 89 (74-106) mg/dL Calcium 9.5 (8.4-10.2) mg/dL Total Bilirubin 0.30 (0.2-1.3) mg/dL AST 31 (14-36) U/L ALT 14 (0-35) U/L Alkaline Phosphatase 68 (38-126) U/L Serum Total Protein 7.2 (6.3-8.2) g/dL Albumin 4.3 (3.5-5.0) g/dL Urine Color YELLOW (YELLOW) Urine Appearance SLIGHTLY CLOUDY (CLEAR) Urine pH 5.0 (5-6) Ur Specific Dinosaur 1.024 (1.005-1.025) Urine Protein 100 (Negative) Urine Ketones NEGATIVE (NEGATIVE) Urine Blood SMALL (0-5) Tomas/ul Urine Nitrite NEGATIVE (NEGATIVE) Urine Bilirubin NEGATIVE (NEGATIVE) Urine Urobilinogen NEGATIVE (0-1) mg/dL Ur Leukocyte Esterase LARGE (NEGATIVE) Urine WBC (Auto) 51-100 (0-5) /HPF Urine RBC (Auto) 26-50 (0-2) /HPF U Epithel Cells (Auto) FEW (FEW) /HPF Urine Bacteria (Auto) FEW (NEGATIVE) /HPF Calcium Oxalate Crystal 0-2 (NEGATIVE) /HPF Urine Mucus (Auto) SLIGHT (NEGATIVE) /HPF Urine Culture Reflexed YES (NO) Urine Glucose NEGATIVE (NEGATIVE) mg/dL - Progress Progress: improved Progress Note: Case discussed with Dr. Ocampo. Dr. Ocampo or Crystal Cuba will see patient in the office tomorrow. Patient may benefit from obtaining an outpatient renal ultrasound to assure there is no pyelonephritis of the left kidney. Patient is currently afebrile. No leukocytosis. Patient is requesting discharge. We discussed admission the patient declined. The patient agrees to follow-up tomorrow for continued work-up of her left flank pain. Patient will continue taking her Bactrim as prescribed by her primary care provider. Today's CAT scan showed bilateral nephrolithiasis no obstructing uropathy. UTI was confirmed on today's urinalysis. BUN and creatinine are normal. Plan of care discussed with patient. She agrees to follow-up tomorrow as discussed. She voices no other complaints concerns at this time. Will discharge home. Portions of this note were created with voice recognition technology. There may be grammatical, spelling, punctuation or sound alike errors 10/18/21 21:46 Discussed with : Claudia Will see patient in: office Counseled pt/family regarding: lab results, diagnosis, need for follow-up, rad results - Departure Departure Disposition: Home Clinical Impression: UTI (urinary tract infection), Nephrolithiasis, CVA tenderness Condition: Stable Critical Care Time: No Referrals: NURIA CUBA, [facility] [Primary Care Provider] - Instructions: Urinary Tract Infections in Adults, Kidney Stones (DC), Flank Pain Additional Instructions: Discharge/Care Plan TRINH HOLLOWAY was seen on 08/07/21 in the Emergency Room. The patient was counseled regarding Diagnosis,Lab results, Imaging studies, need for follow up and when to return to the Emergency Room. Prescriptions given: Discharge Note I have spoken with the patient and/or caregivers. I have explained the patient's condition, diagnosis and treatment plan based on the information available to me at this time. I have answered the patient's and/or caregiver's questions and addressed any concerns. The patient and/or caregivers have as good understanding of the patient's diagnosis, condition and treatment plan as can be expected at this point. The vital signs have been stable. The patient's condition is stable and appropriate for discharge from the emergency department. The patient will pursue further outpatient evaluation with the primary care physician or other designated or consulting physician as outlined in the discharge instructions. The patient and/or caregivers are agreeable to this plan of care and follow-up instructions have been explained in detail. The patient and/or caregivers have received these instruction. The patient/and or caregivers are aware that any significant change in condition or worsening of symptoms should prompt an immediate return to this or the closest emergency department or call 911. Prescriptions: Ketorolac Tromethamine [Toradol] 10 mg PO TID 5 Days #15 tablet
[2021-08-07 20:17] LABS: Hematocrit 38.5 % (35-47); Hemoglobin 12.6 gm/dl (12.0-16.0); Mean Cell Volume 92.3 fl (78-100); Mean Corpuscular Hemoglobin 30.2 pg (26-32); Mean Corpuscular Hgb Concent. 32.7 g/dl (32-36); Mean Platelet Volume 10.4 fl (7.5-11.0); Platelet Count 237 K/mm3 (150-450); Red Blood Count 4.17 M/mm3 (4.1-5.4); Red Cell Distribution Width 14.1 % (11.5-14.0); White Blood Count 9.2 K/mm3 (4.0-10.5)
[2021-08-07 20:29] LABS: ALBUMIN 4.3 g/dL (3.5-5.0); ANION GAP 10.6 MEQ/L (5-15); BILIRUBIN,TOTAL 0.3 mg/dL (0.2-1.3); Calcium 9.5 mg/dL (8.4-10.2); Creatinine 1 1.1 mg/dL (0.52-1.04); EST GLOMERULAR FILTRATION RATE 55.4 ML/MIN; Potassium 4.2 mmol/L (3.5-5.1); Total Protein 7.2 g/dL (6.3-8.2)
[2021-08-07 22:16] VITALS: BP 118/81; PULSE 73; O2SAT 100
[2021-08-08 00:46] LABS: Eosinophil 1 % (0.00-3.0); Lymphocytes 41 % (24-44); Monocyte 2 % (0.0-12.0); Neutrophils 56 % (36.0-66.0); Platelet Estimate NORMAL (NORMAL); Total Cells Counted 100
--- NOTE | 2021-08-08 08:45 | XRAY ---
Indication: Left sided pain. Urolithiasis. History kidney stone. Multiple contiguous axial images obtained through the abdomen and pelvis without contrast. Comparison: July 30, 2021. Lung bases are clear. Heart not enlarged. Noncontrasted stomach and bowel loops appear nonobstructed. Normal appendix. No free fluid/air. Grossly stable nonobstructing bilateral renal micro-calculi, splenic calcified granulomas, and cholecystectomy. Remaining liver, pancreas, spleen, adrenal glands, kidneys, ureters, bladder, and uterus remain unremarkable for noncontrast exam. Stable minimal aortoiliac calcifications without AAA. Osseous structures again demonstrates mild dextrorotoscoliosis, multilevel degenerative spondylosis, and L5 spondylolysis with grade 1 spondylolisthesis. Impression: Stable CT abdomen/pelvis without contrast exam again demonstrating nonobstructing bilateral renal micro-calculi, chronic bony findings, and old granulomatous disease.
== END 2021-08-07 22:31 | disposition home or self-care (01) ==
LOC: ED 19:31
DX: N39.0 Urinary tract infection, site not specified (principal); N20.0 Calculus of kidney
CPT/HCPCS: 36000; 36415; 74176; 80053; 81001; 85025; 87086; 96374; 99284; J1885

== ENCOUNTER 2022-07-22 11:55 | Emergency (ER) | payer OTHER ==
[2022-07-22 12:12] VITALS: BP 119/83; PULSE 70; O2SAT 100
[2022-07-22] MEDS ORDERED: Kenalog-40 IM ONE (12:53)
--- NOTE | 2022-07-22 12:56 | ERPHSYRPT ---
- History of Present Illness Time Seen by Provider: 07/22/22 12:40 Source: patient Exam Limitations: no limitations Patient Subjective Stated Complaint: pt reports skin irritation around her mouth for approx 2 weeks, states that she was recently put on tretinoin for this c ondition and she has not improved, pt now has some pain and open areas as well. Triage Nursing Assessment: pt is aox3, pupils perrl, afebrile, resps easy and non labored, cap refill < 3 seconds, radial pulses strong and equal, pt skin pink warm dry. pt has dry skin around her mouth, pt noted to have some redness and scabbing around the mouth, no drainage present. Physician History: 52 years old female with history of hypothyroidism, hypertension, restless leg syndrome, von Willebrand disease presented in the ER with 2 weeks history of perioral area rash with progressive worsening. Patient was seen outpatient and has used tretinion with no significant relief. Now she is having perioral area crusting with yellow-green and itching and cracking of lips. No sores inside mouth. Denies any new soap/shampoo/make-up use. No fever or chills reported. Patient thinks it is because of allergies to some contents in the mask which she has to use all the time because of her job requirement. Timing/Duration: week(s) (2), constant, gradual onset, worse Quality: burning, itchy Severity: moderate Location: face Possible Causes: no cause identified Associated Symptoms: blisters, change in skin texture, rash Allergies/Adverse Reactions: No Known Drug Allergies Allergy (Verified 07/22/22 12:12) Home Medications: Levothyroxine Sodium 100 Mcg [Synthroid 100 Mcg] 88 mcg PO DAILY 12/19/16 [History] Dextroamphetamine/Amphetamine [Adderall 15 mg Tablet] 20 mg PO BID 07/15/17 [History] Citalopram Hydrobromide [Citalopram HBr] 40 mg PO DAILY 12/26/19 [History] Ropinirole HCl 1 mg PO HS 12/26/19 [History] Calcium Carbonate/Vitamin D3 [Calcium 600 + Vit D Caplet] 1 each PO DAILY 07/30/21 [History] Metoprolol Succinate 50 mg [Toprol Xl 50 MG] 50 mg PO DAILY 07/30/21 [History] Potassium Chloride Tab* [Klor Con 10 MEQ] 20 meq PO DAILY 07/30/21 [History] Hx Tetanus, Diphtheria Vaccination/Date Given: Yes Hx Influenza Vaccination/Date Given: Yes Hx Pneumococcal Vaccination/Date Given: Yes Immunizations Up to Date: Yes Travel Risk - International Travel Have you traveled outside of the country in past 3 weeks: No - Coronavirus Screening Are you exhibiting any of the following symptoms?: No Close contact with a COVID-19 positive Pt in past 14-21 Days: No - Vaccine Status Have you recieved a Covid-19 vaccination: No - Review of Systems Constitutional: No Symptoms Eyes: No Symptoms Ears, Nose, & Throat: Mouth Pain Respiratory: No Symptoms Cardiac: No Symptoms Genitourinary Symptoms: No Symptoms Musculoskeletal: No Symptoms Skin: Pruritis, Rash, Skin Lesions Neurological: No Symptoms Psychological: No Symptoms Hematologic/Lymphatic: Easy Bruising Immunological/Allergic: No Symptoms - Past Medical History Pertinent Past Medical History: Yes Neurological History: Stroke ENT History: No Pertinent History Cardiac History: Hypertension, Other Respiratory History: COPD Endocrine Medical History: Hypothyroidism Musculoskeletal History: Rheumatoid Arthritis GI Medical History: Gallbladder Disease History: Other Psycho-Social History: Other Female Reproductive Disorders: Cervical Cancer Other Medical History: PMHX: COVID 10/09. NOT VACCINATED. LEFT VENTRICULAR HYPERTROPHY, MVP, HX LACUNAR INFARCT (INITIAL SYMPTOMS FACIAL TIGHTENING AND HEADACHE - PER PATIENT NO RESIDUAL), ANXIETY, DEPRESSION. SX HX: , CHOLECYSTECTOMY, CERVICAL ABLATION - Past Surgical History Past Surgical History: Yes Neuro Surgical History: No Pertinent History Cardiac: No Pertinent History Respiratory: No Pertinent History Gastrointestinal: Cholecystectomy Genitourinary: No Pertinent History Musculoskeletal: No Pertinent History Female Surgical History: Other Other Surgical History: Cervical dysplasia with ablation., skin cancer removal and plastic surgery on left eye - Social History Smoking Status: Current every day smoker How long have you smoked: 4yrs+ Exposure to second hand smoke: Yes Drug Use: none Patient Lives Alone: No - Nursing Vital Signs Nursing Vital Signs: Initial Vital Signs Pulse Rate 70 07/22/22 12:02 Respiratory Rate 16 07/22/22 12:02 Blood Pressure 119/83 07/22/22 12:02 O2 Sat by Pulse Oximetry 100 07/22/22 12:02 Pain Scale Pain Intensity 6 - Physical Exam General Appearance: no apparent distress, alert Eye Exam: PERRL/EOMI Ears, Nose, Throat Exam: normal ENT inspection, other (Multiple raised bumps on the cheeks and perioral area especially in the left lower lip edge skin cracks with crusting. 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 Skin Exam: normal color SpO2 Interpretation: normal SpO2: 100 O2 Delivery: Room Air Ordered Tests: Medication Summary Discontinued Medications Generic Name Dose Route Start Last Admin Trade Name Luciana PRN Reason Stop Dose Admin Triamcinolone Acetonide 40 mg 07/22/22 12:53 07/22/22 13:02 Triamcinolone Acetonide 40 Mg/Ml Ml IM 07/22/22 12:54 40 mg 1XONLY ONE Administration Triamcinolone Acetonide Confirm 07/22/22 13:00 Triamcinolone Acetonide 40 Mg/Ml Ml Administered 07/22/22 13:01 Dose 40 mg .ROUTE .STK-MED ONE - Progress Progress: unchanged Progress Note: 07/22/22 12:53 I do not know the exact cause of her symptoms, she is given a steroid shot, recommended Benadryl use and will give mupirocin to avoid superimposed infection. She is advised to keep dermatology appointment. Discussed signs symptoms of worsening needing return to ER which she seems understanding. Counseled pt/family regarding: diagnosis, need for follow-up - Departure Departure Disposition: Home Clinical Impression: Perioral dermatitis Condition: Stable Critical Care Time: No Referrals: NURIA PERALES NP [Primary Care Provider] - Follow Up with PCP/3 days Instructions: Dermatitis Additional Instructions: Follow-up with primary care for reevaluation. Take Benadryl as needed for itching/burning sensation. Keep appointment with dermatology. Return to ER for worsening. Prescriptions: Mupirocin [Bactroban OINTMENT] 22 gm TP BID 7 Days #1 tu
[2022-07-22] MEDS ORDERED: Kenalog-40 ONE (13:00)
== END 2022-07-22 13:18 | disposition home or self-care (01) ==
LOC: ED 11:55
DX: L71.0 Perioral dermatitis (principal); I10 Essential (primary) hypertension; J44.9 Chronic obstructive pulmonary disease, unspecified; Z72.0 Tobacco use; Z79.899 Other long term (current) drug therapy; Z28.310 Unvaccinated for COVID-19; Z86.16 Personal history of COVID-19
CPT/HCPCS: 96372; 99282; J3301

== ENCOUNTER 2023-04-23 11:19 | Emergency (ER) | payer OTHER ==
[2023-04-23] MEDS ORDERED: MORPHINE SULFATE 4 MG INJ IM ONE (11:36)
[2023-04-23] MEDS ORDERED: MORPHINE SULFATE 4 MG INJ ONE (11:39)
[2023-04-23 12:02] VITALS: BP 122/90; PULSE 78; O2SAT 97
[2023-04-23] MEDS ORDERED: TORAdol 30 mg Injection IM ONE (13:01)
[2023-04-23] MEDS ORDERED: TORAdol 30 mg Injection ONE (13:12)
--- NOTE | 2023-04-23 13:22 | ERPHSYRPT ---
- History of Present Illness Time Seen by Provider: 04/23/23 11:23 Source: patient Exam Limitations: no limitations Patient Subjective Stated Complaint: pt here for left sided neck pain for about 2 weeks now. no injury. Triage Nursing Assessment: pt alert, resp easy, walked in, tenderness to neck.moves all ext well. Physician History: 53 years old female with history of chronic pain on pain medications presented to the ER with increasing pain and stiffness on the left neck for the last couple of weeks without any obvious trauma. Patient reports she has x-rays done which showed some degenerative changes. She has moderate to severe sharp pain, more with movements at the neck and even it hurts to swallow. No difficulty breathing. No radiation of pain to left upper extremity. No numbness or tingling in the upper extremities. Timing/Duration: week(s) (2), constant, gradual onset, worse Severity: moderate, severe Modifying Factors: Worsens With: movement Associated Symptoms: denies symptoms, No headaches, No weakness Allergies/Adverse Reactions: No Known Drug Allergies Allergy (Verified 04/23/23 11:29) Home Medications: Levothyroxine Sodium 100 Mcg [Synthroid 100 Mcg] 50 mcg PO DAILY 12/19/16 [History] Dextroamphetamine/Amphetamine [Adderall 15 mg Tablet] 20 mg PO TID 07/15/17 [History] Citalopram Hydrobromide [Citalopram HBr] 40 mg PO DAILY 12/26/19 [History] Ropinirole HCl 1 mg PO HS 12/26/19 [History] Calcium Carbonate/Vitamin D3 [Calcium 600 + Vit D Caplet] 1 each PO DAILY 07/30/21 [History] Metoprolol Succinate 50 mg [Toprol Xl 50 MG] 50 mg PO DAILY 07/30/21 [History] Potassium Chloride Tab* [Klor Con 10 MEQ] 20 meq PO DAILY 07/30/21 [History] Oxycodone HCl/Acetaminophen [Percocet 7.5-325 mg Tablet] 1 each PO TID 04/23/23 [History] Hx Tetanus, Diphtheria Vaccination/Date Given: No Hx Influenza Vaccination/Date Given: No Hx Pneumococcal Vaccination/Date Given: No Immunizations Up to Date: Yes Travel Risk - International Travel Have you traveled outside of the country in past 3 weeks: No - Coronavirus Screening Are you exhibiting any of the following symptoms?: No Close contact with a COVID-19 positive Pt in past 14-21 Days: No - Vaccine Status Have you recieved a Covid-19 vaccination: No - Review of Systems Constitutional: No Symptoms Eyes: No Symptoms Ears, Nose, & Throat: No Symptoms Respiratory: No Symptoms Cardiac: No Symptoms Abdominal/Gastrointestinal: No Symptoms Genitourinary Symptoms: No Symptoms Musculoskeletal: Neck Pain Neurological: No Symptoms Psychological: No Symptoms Hematologic/Lymphatic: No Symptoms Immunological/Allergic: No Symptoms - Past Medical History Pertinent Past Medical History: Yes Neurological History: Stroke ENT History: No Pertinent History Cardiac History: Hypertension, Other Respiratory History: COPD Endocrine Medical History: Hypothyroidism Musculoskeletal History: Rheumatoid Arthritis GI Medical History: Gallbladder Disease History: Other Psycho-Social History: Other Female Reproductive Disorders: Cervical Cancer Other Medical History: PMHX: COVID 10/09. NOT VACCINATED. LEFT VENTRICULAR HYPERTROPHY, MVP, HX LACUNAR INFARCT (INITIAL SYMPTOMS FACIAL TIGHTENING AND HEADACHE - PER PATIENT NO RESIDUAL), ANXIETY, DEPRESSION. SX HX: , CHOLECYSTECTOMY, CERVICAL ABLATION - Past Surgical History Past Surgical History: Yes Neuro Surgical History: No Pertinent History Cardiac: No Pertinent History Respiratory: No Pertinent History Gastrointestinal: Cholecystectomy Genitourinary: No Pertinent History Musculoskeletal: No Pertinent History Female Surgical History: Other Other Surgical History: Cervical dysplasia with ablation., skin cancer removal and plastic surgery on left eye - Social History Smoking Status: Current every day smoker How long have you smoked: 4yrs+ Exposure to second hand smoke: Yes Drug Use: none Patient Lives Alone: No - Nursing Vital Signs Nursing Vital Signs: Initial Vital Signs Temperature 97.0 F 04/23/23 11:35 Pulse Rate 78 04/23/23 11:35 Respiratory Rate 18 04/23/23 11:35 Blood Pressure 122/90 04/23/23 11:35 O2 Sat by Pulse Oximetry 97 04/23/23 11:35 Pain Scale Pain Intensity 8 - Physical Exam General Appearance: no apparent distress, alert Eye Exam: PERRL/EOMI Ears, Nose, Throat Exam: normal ENT inspection, TMs normal, pharynx normal, moist mucous membranes Neck Exam: normal inspection, supple, other (Tenderness along trapezius and sternomastoid area left side. Mild midline tenderness. Restricted range of motion because of pain on the left neck with movements.), No full range of motion Respiratory Exam: normal breath sounds, lungs clear Cardiovascular Exam: regular rate/rhythm, normal heart sounds Back Exam: normal inspection, normal range of motion, No CVA tenderness Extremity Exam: normal inspection, normal range of motion Neurologic Exam: alert, oriented x 3, cooperative Skin Exam: normal color SpO2 Interpretation: normal SpO2: 97 O2 Delivery: Room Air Ordered Tests: Active Orders 24 hr Category Date Time Status CERVICAL SPINE WO CONTRAST [CT] Stat Exams 04/23/23 11:35 Taken Medication Summary Discontinued Medications Generic Name Dose Route Start Last Admin Trade Name Luciana PRN Reason Stop Dose Admin Ketorolac Tromethamine 30 mg 04/23/23 13:01 04/23/23 13:12 Ketorolac Tromethamine 30 Mg/Ml Inj IM 04/23/23 13:02 30 mg STAT ONE Administration Ketorolac Tromethamine Confirm 04/23/23 13:12 Ketorolac Tromethamine 30 Mg/Ml Inj Administered 04/23/23 13:13 Dose 30 mg .ROUTE .STK-MED ONE Morphine Sulfate 4 mg 04/23/23 11:36 04/23/23 11:40 Morphine Sulfate 4 Mg/Ml Injection IM 04/23/23 11:37 4 mg STAT ONE Administration Morphine Sulfate Confirm 04/23/23 11:39 Morphine Sulfate 4 Mg/Ml Injection Administered 04/23/23 11:40 Dose 4 mg .ROUTE .STK-MED ONE - Progress Progress: pain not gone completely Progress Note: 04/23/23 13:20 53 years old female with history of chronic pain on pain medications presented to the ER with increasing pain and stiffness on the left neck for the last couple of weeks without any obvious trauma. Patient reports she has x-rays done which showed some degenerative changes. She has moderate to severe sharp pain, more with movements at the neck and even it hurts to swallow. No difficulty breathing. No radiation of pain to left upper extremity. No numbness or tingling in the upper extremities. Patient has left-sided neck muscle tenderness. Obtained CT cervical spine which showed foraminal narrowing, degenerative changes, muscle spasms and mild anterolisthesis. She does not have any fracture or subluxation. Patient is given morphine and Toradol for symptomatic relief, feeling better on reevaluation, though pain has not completely resolved. She does have muscle relaxants at home but does not take it as it makes her sleepy. I have advised to take muscle relaxant between pain medications and would also give a short course of steroid and lidocaine patches. Recommended outpatient neurosurgery/pain management follow-up. Discussed signs symptoms of worsening needing return to ER which she seems understanding. Stable for discharge. Counseled pt/family regarding: diagnosis, need for follow-up, rad results Medical Desision Making - Diagnostic Testing Diagnostic test were ordered, analyzed, and reviewed by me: Yes Radiological Interpretation: Reviewed by me, Teleradiologist Report - Risk of complications The pt has a mod risk of morbidity or mortality based on: Need for prescription drug management - Departure Departure Disposition: Home Clinical Impression: Neck muscle strain Condition: Stable Critical Care Time: No Referrals: NURIA PERALES NP [Primary Care Provider] - Follow up with PCP 1 day Instructions: Cervical Muscle Strain (DC) Additional Instructions: Continue with your pain medicine and muscle relaxants. Follow-up with primary care and neurosurgery for reevaluation. Return to ER for any worsening pain, numbness or weakness of her upper extremities etc. Prescriptions: Prednisone 20 mg [Deltasone 20 mg] 60 mg PO DAILY 5 Days #15 tablet Lidocaine/Transparent Dressing [Lidocaine 4% Kit] 1 each TP DAILY 12 Days #12 kit
--- NOTE | 2023-04-23 16:45 | XRAY ---
CLINICAL HISTORY:neck pain COMPARISON:None. TECHNIQUE:Multiple axial slices with coronal and sagittal reformatting from CT scan cervical spine without contrast have been submitted for dictation. DLP: [id number]. FINDINGS: Bone density is preserved. Straightening of cervical lordosis is noted. Multilevel reduced intervertebral disc spaces are noted. Mild grade 1 anterolisthesis of C4 over C5 vertebrae is noted. Vertebral body heights are preserved. No definite fracture is noted. Prevertebral soft tissues are intact. Level by level analysis: C1-C2 level: Atlantodental interval is preserved. Odontoid process and atlantoaxial joint are normal. No definite spinal canal stenosis is noted. C2-C3 level: No definite spinal canal stenosis or neural foraminal stenosis. C3-C4 level: No definite spinal canal stenosis or neural foraminal stenosis. C4-C5 level: No definite spinal canal stenosis or neural foraminal stenosis. C5-C6 level: Small posterior marginal osteophytes and hypertrophy of left facet joint are causing indentation on the anterior thecal sac and mild narrowing of left neural foramen. Spinal canal and right neural foramen are normal. C6-C7 level: Small posterior marginal osteophytes along with mild hypertrophy of bilateral facets are causing mild narrowing of bilateral neural foramina. C7-T1 level: Mild hypertrophy of bilateral facets is noted. No definite spinal canal stenosis or neural foraminal stenosis. IMPRESSION: Straightening of cervical lordosis noted, likely due to muscle spasm. Mild grade 1 anterolisthesis of C4 over C5 vertebrae noted. Small posterior marginal osteophytes and hypertrophy of left facet joint noted causing indentation on the anterior thecal sac and mild narrowing of left neural foramen at C5-C6 level. Small posterior marginal osteophyte along with mild hypertrophy of bilateral facets causing mild narrowing of bilateral neural foramina at C6-C7 level. No definite fracture is noted. Electronically Signed by: India Wick MD. (04/23/2023 11:41:34 [employer])
== END 2023-04-23 13:50 | disposition home or self-care (01) ==
LOC: ED 11:19
DX: S16.1XXA Strain of muscle, fascia and tendon at neck level, initial encounter (principal); I10 Essential (primary) hypertension; Z79.891 Long term (current) use of opiate analgesic; Z79.52 Long term (current) use of systemic steroids; Z79.899 Other long term (current) drug therapy; Z28.310 Unvaccinated for COVID-19; Z86.16 Personal history of COVID-19; Z72.0 Tobacco use
CPT/HCPCS: 72125; 96372; 99283; J1885; J2270

== ENCOUNTER 2023-06-24 19:11 | Emergency (ER) | payer OTHER ==
[2012-10-14 05:06] VITALS: BP 112/63
== END 2023-06-24 20:32 | disposition left against medical advice (07) ==
LOC: ED 19:11
DX: Z53.21 Procedure and treatment not carried out due to patient leaving prior to being seen by health care provider (principal)

== ENCOUNTER 2023-06-25 17:50 | Emergency (ER) | payer OTHER ==
[2023-06-25 18:54] VITALS: RESP 18; TEMP 97.6
[2023-06-25] MEDS ORDERED: Sodium Chloride 0.9% 1000 ML 1,000 ML IV STA (19:04)
[2023-06-25] MEDS ORDERED: TORAdol 30 mg Injection IV ONE (19:04)
[2023-06-25 19:20] LABS: Appearance Cloudy (Clear); Bacteria Many /HPF (None Seen); Bilirubin Negative (Negative); Blood Trace (Negative); Epithelial Cells None Seen /HPF (None Seen); Glucose, Urine Negative (Negative); Hyaline Casts NONE SEEN /LPF (0-2); Ketones Negative (Negative); Leukocyte Esterase Moderate (Negative); Nitrite Positive (Negative); Ph 5.5 (4.6-8.0); Protein,Urine Dip 100 (Negative); RBC 0-2 /HPF (0-5); Specific Gravity 1.025 (1.005-1.030); WBC >100 /HPF (0-5)
[2023-06-25 19:21] LABS: ADD URINE CULTURE? YES (NO)
[2023-06-25 19:47] LABS: Absolute Neutrophil Ct (ANC) 11.73 x10^3/uL (1.4-6.9); BASOPHIL % 0.2 % (0.0-0.4); Basophil (Absolute #) 0.04 x10^3/uL (0-0.4); Eosinophil % 0.5 % (0.00-5.0); Eosinophil (Absolute #) 0.08 x10^3/uL (0-0.5); Hematocrit 36.7 % (35-47); Hemoglobin 12.3 g/dL (12.0-16.0); IMMATURE GRAN # 0.11 x10^3u/L (0.00-0.03); IMMATURE GRAN % 0.7 % (0.00-0.4); Lymphocyte (Absolute #) 3.02 x10^3/uL (1.0-4.6); Lymphocytes % 18.4 % (24.0-44.0); Mean Corpuscular Hemoglobin 30.1 pg (26-32); Mean Corpuscular Hgb Concent. 33.5 g/dL (32-36); Mean Platelet Volume 10.7 fL (7.5-11.0); Monocytes % 8.5 % (0.0-12.0); Neutrophil % 71.7 % (36.0-66.0); Platelet Count 202 x10^3/uL (150-450); Red Blood Count 4.08 x10^6/uL (4.1-5.4); Red Cell Distribution Width 13.8 % (11.5-14.0); White Blood Count 16.4 x10^3/uL (4.0-10.5)
[2023-06-25 20:02] LABS: ALBUMIN 4.2 g/dL (3.5-5.0); ALKALINE PHOSPHATASE 79 U/L (38-126); ANION GAP 12.6 MEQ/L (5-15); BLOOD UREA NITROGEN 15 mg/dL (7-17); CHLORIDE 98 mmol/L (98-107); Calcium 9.3 mg/dL (8.4-10.2); Carbon Dioxide 25 mmol/L (22-30); Creatinine 1 0.89 mg/dL (0.52-1.04); EST GLOMERULAR FILTRATION RATE > 60.0 ML/MIN; Glucose 93 mg/dL (74-106); Potassium 3.2 mmol/L (3.5-5.1); SGOT/AST 36 U/L (14-36); SGPT/ALT 19 U/L (0-35); SODIUM 132 mmol/L (137-145); Total Protein 7.3 g/dL (6.3-8.2)
[2023-06-25] MEDS ORDERED: Sodium Chloride 0.9% 1000 ML 1,000 ML ONE (20:09)
[2023-06-25] MEDS ORDERED: TORAdol 30 mg Injection ONE (20:09)
[2023-06-25 20:13] VITALS: O2SAT 95
[2023-06-25] MEDS ORDERED: ROCEPHIN 1 Gm-D5w 50 ml Bag** 1 G/50 ML IVPB IV STA (20:56)
--- NOTE | 2023-06-25 20:58 | ERPHSYRPT ---
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 Physician History: Patient is a 53-year-old female presents to our ED with right-sided flank pain. Patient has a known urinary tract infection. Patient states she has a history of kidney stones and believes she has another. Pain described as an ache that is localized to the right flank. No radiation. Pain constant. No specific worsening improving factors. Patient otherwise feels well. She denies trauma. Patient voices no other complaints or concerns at this time. Portions of this note were created with voice recognition technology. There may be grammatical, spelling, punctuation or sound alike errors Timing/Duration: today Activities at Onset: none Quality: aching Abdominal Pain Onset Location: flank Pain Radiation: no radiation (Right flank) Severity of Pain-Max: moderate Severity of Pain-Current: mild Modifying Factors: Improves With: nothing Associated Symptoms: other (Body aches) Previous symptoms: same symptoms as today Allergies/Adverse Reactions: No Known Drug Allergies Allergy (Verified 06/25/23 18:54) Home Medications: Levothyroxine Sodium 100 Mcg [Synthroid 100 Mcg] 50 mcg PO DAILY 12/19/16 [History] Dextroamphetamine/Amphetamine [Adderall 15 mg Tablet] 20 mg PO TID 07/15/17 [History] Citalopram Hydrobromide [Citalopram HBr] 40 mg PO DAILY 12/26/19 [History] Ropinirole HCl 1 mg PO HS 12/26/19 [History] Calcium Carbonate/Vitamin D3 [Calcium 600 + Vit D Caplet] 1 each PO DAILY 07/21 [History] Metoprolol Succinate 50 mg [Toprol Xl 50 MG] 50 mg PO DAILY 07/30/21 [History] Potassium Chloride Tab* [Klor Con 10 MEQ] 15 ml PO BID 07/30/21 [History] Hx Tetanus, Diphtheria Vaccination/Date Given: No Hx Influenza Vaccination/Date Given: No Hx Pneumococcal Vaccination/Date Given: No Immunizations Up to Date: Yes Travel Risk - International Travel Have you traveled outside of the country in past 3 weeks: No - Coronavirus Screening Are you exhibiting any of the following symptoms?: No Close contact with a COVID-19 positive Pt in past 14-21 Days: No - Vaccine Status Have you recieved a Covid-19 vaccination: No - Review of Systems Constitutional: No Symptoms, No Fever, No Chills Eyes: No Symptoms Ears, Nose, & Throat: No Symptoms Respiratory: No Symptoms, No Cough, No Dyspnea Cardiac: No Symptoms, No Chest Pain, No Edema, No Syncope Abdominal/Gastrointestinal: No Symptoms, No Abdominal Pain, No Nausea, No Vomiting, No Diarrhea Genitourinary Symptoms: No Symptoms, No Dysuria Musculoskeletal: No Symptoms, No Back Pain, No Neck Pain Skin: No Symptoms, No Rash Neurological: No Symptoms, No Dizziness, No Focal Weakness, No Sensory Changes Psychological: No Symptoms Endocrine: No Symptoms Hematologic/Lymphatic: No Symptoms Immunological/Allergic: No Symptoms All Other Systems: Reviewed and Negative - Past Medical History Pertinent Past Medical History: Yes Neurological History: Stroke ENT History: No Pertinent History Cardiac History: Hypertension Respiratory History: COPD Endocrine Medical History: Hyperthyroidism Musculoskeletal History: Arthritis, Osteoporosis GI Medical History: Gallbladder Disease History: Other Psycho-Social History: Other Female Reproductive Disorders: Cervical Cancer Other Medical History: 2019 lacunar stroke. Mitral prolapse. January dx-bleeding disorder - Past Surgical History Past Surgical History: Yes Neuro Surgical History: No Pertinent History Cardiac: No Pertinent History Respiratory: No Pertinent History Gastrointestinal: Cholecystectomy Genitourinary: No Pertinent History Musculoskeletal: No Pertinent History Female Surgical History: Other Other Surgical History: Cervical dysplasia with ablation., skin cancer removal and plastic surgery on left eye - Social History Smoking Status: Current every day smoker How long have you smoked: 4yrs+ Exposure to second hand smoke: Yes Drug Use: none Patient Lives Alone: No - Nursing Vital Signs Nursing Vital Signs: Initial Vital Signs Temperature 97.6 F 06/25/23 18:50 Pulse Rate 92 H 06/25/23 18:50 Respiratory Rate 18 06/25/23 18:50 Blood Pressure 123/86 06/25/23 18:50 O2 Sat by Pulse Oximetry 98 06/25/23 18:50 Pain Scale Pain Intensity 4 - Physical Exam General Appearance: no apparent distress, alert Eye Exam: PERRL/EOMI, eyes nml inspection Ears, Nose, Throat Exam: normal ENT inspection, pharynx normal, moist mucous membranes Neck Exam: normal inspection, non-tender, supple, full range of motion Respiratory Exam: normal breath sounds, lungs clear, airway intact, No respiratory distress Cardiovascular Exam: regular rate/rhythm, normal heart sounds, normal peripheral pulses Gastrointestinal/Abdomen Exam: soft, No tenderness, No mass Back Exam: normal inspection, normal range of motion, No CVA tenderness, No vertebral tenderness Extremity Exam: normal inspection, normal range of motion, pelvis stable Neurologic Exam: alert, oriented x 3, cooperative, normal mood/affect, nml cerebellar function, sensation nml, No motor deficits Skin Exam: normal color, warm, dry SpO2 Interpretation: normal SpO2: 95 O2 Delivery: Room Air - Course Nursing assessment & vital signs reviewed: Yes - CT Exams Abdomen/Pelvis CT Interpretation: Tele-radiologist Report (New 3 to 4 mm proximal right ureteral calculus at L2-L3. Again additional bilateral renal micro calculi) Ordered Tests: Active Orders 24 hr Category Date Time Status AMA [Release AMA] OM.NOW Care 06/25/23 21:09 Active IV Insertion STAT Care 06/25/23 19:04 Active Telemetry q4h Care 06/25/23 20:57 Active ABDOMEN AND PELVIS W/0 CONTRAS [CT] Stat Exams 06/25/23 19:05 Taken CBC W DIFF Stat Lab 06/25/23 19:35 Completed CMP Stat Lab 06/25/23 19:35 Completed CULTURE,URINE Stat Lab 06/25/23 19:12 Received TROPONIN Q4H Lab 06/25/23 19:35 Completed TROPONIN Q4H Lab 06/25/23 23:15 Ordered TROPONIN Q4H Lab 06/26/23 03:15 Ordered UA W/RFX UR CULTURE Stat Lab 06/25/23 19:12 Completed Medication Summary Generic Name Dose Route Start Last Admin Trade Name Freq PRN Reason Stop Dose Admin Ceftriaxone Sodium/Dextrose 1 g in 50 mls @ 100 mls/hr 06/25/23 20:56 Rocephin 1 Gm-D5w 50 Ml Bag IV 06/25/23 21:25 STAT STA Magnesium Sulfate/Dextrose 100 mls @ 100 mls/hr 06/25/23 21:00 Magnesium 1 Gm / 100 Ml D5w IV 06/25/23 22:59 Q1H AMANDA Potassium Chloride 20 meq in 100 mls @ 50 mls/hr 06/25/23 21:00 Potassium Chloride 20 Meq In Water 100ml IV 06/26/23 00:59 Q2H AMANDA Discontinued Medications Generic Name Dose Route Start Last Admin Trade Name Luciana PRN Reason Stop Dose Admin Sodium Chloride 1,000 mls @ 999 mls/hr 06/25/23 19:04 06/25/23 20:12 Sodium Chloride 0.9% 1000 Ml IV 06/25/23 20:04 999 mls/hr .Q1H1M STA Administration Sodium Chloride Confirm 06/25/23 20:09 Sodium Chloride 0.9% 1000 Ml Administered 06/25/23 20:10 Dose 1,000 mls @ ud .ROUTE .STK-MED ONE Ketorolac Tromethamine 30 mg 06/25/23 19:04 06/25/23 20:13 Ketorolac Tromethamine 30 Mg/Ml Inj IV 06/25/23 19:05 30 mg STAT ONE Administration Ketorolac Tromethamine Confirm 06/25/23 20:09 Ketorolac Tromethamine 30 Mg/Ml Inj Administered 06/25/23 20:10 Dose 30 mg .ROUTE .STK-MED ONE Lab/Rad Data: Laboratory Result Diagrams 06/25/23 19:35 06/25/23 19:35 Laboratory Results 06/25/23 06/25/23 06/25/23 Range/Units 19:35 19:35 19:35 WBC 16.4 H (4.0-10.5) x10^3/uL RBC 4.08 L (4.1-5.4) x10^6/uL Hgb 12.3 (12.0-16.0) g/dL Hct 36.7 (35-47) % MCV 90.0 (78-100) fL MCH 30.1 (26-32) pg MCHC 33.5 (32-36) g/dL RDW 13.8 (11.5-14.0) % Plt Count 202 (150-450) x10^3/uL MPV 10.7 (7.5-11.0) fL Gran % 71.7 H (36.0-66.0) % Immature Gran % (Auto) 0.7 H (0.00-0.4) % Nucleat RBC Rel Count 0.0 (0.00-0.1) % Eos # (Auto) 0.08 (0-0.5) x10^3/uL Immature Gran # (Auto) 0.11 H (0.00-0.03) x10^3u/L Absolute Lymphs (auto) 3.02 (1.0-4.6) x10^3/uL Absolute Monos (auto) 1.40 H (0.0-1.3) x10^3/uL Absolute Nucleated RBC 0.00 (0.00-0.01) x10^3u/L Lymphocytes % 18.4 L (24.0-44.0) % Monocytes % 8.5 (0.0-12.0) % Eosinophils % 0.5 (0.00-5.0) % Basophils % 0.2 (0.0-0.4) % Absolute Granulocytes 11.73 H (1.4-6.9) x10^3/uL Basophils # 0.04 (0-0.4) x10^3/uL Sodium 132 L (137-145) mmol/L Potassium 3.2 L (3.5-5.1) mmol/L Chloride 98 (98-107) mmol/L Carbon Dioxide 25 (22-30) mmol/L Anion Gap 12.6 (5-15) MEQ/L BUN 15 (7-17) mg/dL Creatinine 0.89 (0.52-1.04) mg/dL Estimated GFR > 60.0 ML/MIN Glucose 93 (74-106) mg/dL Calcium 9.3 (8.4-10.2) mg/dL Total Bilirubin 0.40 (0.2-1.3) mg/dL AST 36 (14-36) U/L ALT 19 (0-35) U/L Alkaline Phosphatase 79 (38-126) U/L Troponin I < 0.012 (0.000-0.034) ng/mL Serum Total Protein 7.3 (6.3-8.2) g/dL Albumin 4.2 (3.5-5.0) g/dL Urine Color (Yellow) Urine Appearance (Clear) Urine pH (4.6-8.0) Ur Specific [place] (1.005-1.030) Urine Protein (Negative) Urine Glucose (UA) (Negative) mg/dL Urine Ketones (Negative) Urine Blood (Negative) Urine Nitrite (Negative) Urine Bilirubin (Negative) Urine Urobilinogen (0.2) mg/dL Ur Leukocyte Esterase (Negative) U Hyaline Cast (Auto) (0-2) /LPF Urine Microscopic RBC (0-5) /HPF Urine Microscopic WBC (0-5) /HPF Ur Epithelial Cells (None Seen) /HPF Urine Bacteria (None Seen) /HPF Urine Culture Reflexed (NO) 06/25/23 Range/Units 19:12 WBC (4.0-10.5) x10^3/uL RBC (4.1-5.4) x10^6/uL Hgb (12.0-16.0) g/dL Hct (35-47) % MCV (78-100) fL MCH (26-32) pg MCHC (32-36) g/dL RDW (11.5-14.0) % Plt Count (150-450) x10^3/uL MPV (7.5-11.0) fL Gran % (36.0-66.0) % Immature Gran % (Auto) (0.00-0.4) % Nucleat RBC Rel Count (0.00-0.1) % Eos # (Auto) (0-0.5) x10^3/uL Immature Gran # (Auto) (0.00-0.03) x10^3u/L Absolute Lymphs (auto) (1.0-4.6) x10^3/uL Absolute Monos (auto) (0.0-1.3) x10^3/uL Absolute Nucleated RBC (0.00-0.01) x10^3u/L Lymphocytes % (24.0-44.0) % Monocytes % (0.0-12.0) % Eosinophils % (0.00-5.0) % Basophils % (0.0-0.4) % Absolute Granulocytes (1.4-6.9) x10^3/uL Basophils # (0-0.4) x10^3/uL Sodium (137-145) mmol/L Potassium (3.5-5.1) mmol/L Chloride (98-107) mmol/L Carbon Dioxide (22-30) mmol/L Anion Gap (5-15) MEQ/L BUN (7-17) mg/dL Creatinine (0.52-1.04) mg/dL Estimated GFR ML/MIN Glucose (74-106) mg/dL Calcium (8.4-10.2) mg/dL Total Bilirubin (0.2-1.3) mg/dL AST (14-36) U/L ALT (0-35) U/L Alkaline Phosphatase (38-126) U/L Troponin I (0.000-0.034) ng/mL Serum Total Protein (6.3-8.2) g/dL Albumin (3.5-5.0) g/dL Urine Color Yellow (Yellow) Urine Appearance Cloudy A (Clear) Urine pH 5.5 (4.6-8.0) Ur Specific [place] 1.025 (1.005-1.030) Urine Protein 100 A (Negative) Urine Glucose (UA) Negative (Negative) mg/dL Urine Ketones Negative (Negative) Urine Blood Trace (Negative) Urine Nitrite Positive A (Negative) Urine Bilirubin Negative (Negative) Urine Urobilinogen 1.0 A (0.2) mg/dL Ur Leukocyte Esterase Moderate A (Negative) U Hyaline Cast (Auto) NONE SEEN (0-2) /LPF Urine Microscopic RBC 0-2 (0-5) /HPF Urine Microscopic WBC >100 A (0-5) /HPF Ur Epithelial Cells None Seen (None Seen) /HPF Urine Bacteria Many A (None Seen) /HPF Urine Culture Reflexed YES (NO) - Progress Progress: improved Progress Note: 53-year-old female presents to our ED with right flank pain. Patient has an infected kidney stone. Work-up reveals a hypokalemia hyponatremia as well. We advised transfer to [facility] for urology services. Patient declined. Patient that she will follow-up on her own and does not want to be transferred. Patient will leave AMA. Patient is of sound mind. Patient is appropriate to make informed and independent medical decisions. Patient understands that leaving AGAINST MEDICAL ADVICE can result in delayed diagnosis, increased risk of morbidity, mortality, short and long-term disability including . In spite of these risks, vale sage has decided to leave AGAINST MEDICAL ADVICE. Patient understands that she may return to our ED at any point if she reconsiders. Patient agrees to follow-up with his primary care doctor within 48 hours for reevaluation. Patient voices no other complaints or concerns at this time. We will release patient AGAINST MEDICAL ADVICE per their request. Complexity of problem addressed is moderate acute complicated No critical care time Complex of data reviewed and analyzed is moderate. Test ordered. Test reviewed and analyzed. Clinical correlation made between findings and history and physical examination. Risk of complication and a risk morbidity/mortality of patient management is high. Patient requires transfer to higher level of care/hospitalization. Patient refused transfer. Patient currently on antibiotics for known UTI. Will discharge home with a prescription for Toradol. Patient states she will follow-up with her urologist. Vital stable. Time spent to discharge patient is approximately 15 minutes. No social determinants of health present to impede follow-up. Portions of this note were created with voice recognition technology. There may be grammatical, spelling, punctuation or sound alike errors 06/25/23 21:10 Counseled pt/family regarding: lab results, diagnosis, rad results - Departure Departure Disposition: AMA Clinical Impression: Ureterolithiasis, Urinary tract infection, Flank pain, Renal calculus, Leukocytosis, Hyponatremia, Hypokalemia Condition: Stable Critical Care Time: No Referrals: NURIA PERALES NP [Primary Care Provider] - Follow up/PCP as directed Additional Instructions: Discharge/Care Plan TRINH HOLLOWAY was seen on 06/25/23 in the Emergency Room. The patient was counseled regarding Diagnosis,Lab results, Imaging studies, need for follow up and when to return to the Emergency Room. Prescriptions given: Discharge Note I have spoken with the patient and/or caregivers. I have explained the patient's condition, diagnosis and treatment plan based on the information available to me at this time. I have answered the patient's and/or caregiver's questions and addressed any concerns. The patient and/or caregivers have as good understanding of the patient's diagnosis, condition and treatment plan as can be expected at this point. The vital signs have been stable. The patient's condition is stable and appropriate for discharge from the emergency department. The patient will pursue further outpatient evaluation with the primary care physician or other designated or consulting physician as outlined in the discharge instructions. The patient and/or caregivers are agreeable to this plan of care and follow-up instructions have been explained in detail. The patient and/or caregivers have received these instruction. The patient/and or caregivers are aware that any significant change in condition or worsening of symptoms should prompt an immediate return to this or the closest emergency department or call 911. Prescriptions: Ketorolac Trometh 10 mg Tab [TORAdol 10 MG TABLET] 10 mg PO TID 5 Days #15 tablet
[2023-06-25] MEDS ORDERED: Magnesium 1 Gm / 100 Ml D5W*** 100 ML IV SCH (21:00)
[2023-06-25] MEDS ORDERED: POTASSIUM CHLORIDE 20 mEq IN WATER 100ML 20 MEQ/100 ML BAG IV SCH (21:00)
[2023-06-25 21:40] VITALS: BP 99/52; PULSE 73
--- NOTE | 2023-06-26 08:40 | XRAY ---
Indication: Pain. Nausea. Upset stomach. Multiple contiguous axial images obtained through the abdomen and pelvis without contrast. Comparison: August 07, 2021 Lung bases demonstrates minimal fibrosis/scarring. Stable tiny left base noncalcified nodule favored to be benign given stability over the years. No infiltrate or effusion. Heart not enlarged Noncontrasted stomach and bowel loops appear nonobstructed. New 3-4 mm proximal right ureter calculus approximately L2-L3 level. Mild hydronephrosis and renal edema consistent with obstructive uropathy. Additional bilateral renal calculi, largest left lower pole measuring 9 mm. Again cholecystectomy and splenic calcified granulomas. No free fluid/air. Remaining liver, pancreas, spleen, adrenal glands, kidneys, ureters, bladder, and uterus are unremarkable for noncontrast exam. Normal aortoiliac calcifications without AAA. Osseous structures intact again with mild double curvature scoliosis, mild/moderate multilevel thoracolumbar degenerative spondylosis, and L5 spondylolysis with grade 1-2 listhesis. Impression: 1. New 3-4 mm proximal right ureter Is producing partial obstruction. Again additional bilateral renal calculi. 2. Chronic findings including arteriosclerotic disease, chronic bony findings, and old granulomatous disease.
== END 2023-06-25 21:40 | disposition home or self-care (01) ==
LOC: ED 17:50
DX: N13.6 Pyonephrosis (principal); N39.0 Urinary tract infection, site not specified; R10.9 Unspecified abdominal pain; D72.829 Elevated white blood cell count, unspecified; E87.1 Hypo-osmolality and hyponatremia; E87.6 Hypokalemia; Z87.442 Personal history of urinary calculi; I10 Essential (primary) hypertension; Z79.899 Other long term (current) drug therapy; Z28.310 Unvaccinated for COVID-19; Z72.0 Tobacco use
CPT/HCPCS: 36000; 36415; 74176; 80053; 81001; 84484; 85025; 87077; 87086; 87186; 96374; 99284; J1885

== ENCOUNTER 2024-11-22 09:56 | Emergency (ER) | payer OTHER ==
[2024-11-22 10:11] VITALS: RESP 18; TEMP 97.5; O2SAT 98
--- NOTE | 2024-11-22 10:27 | ERPHSYRPT ---
- History of Present Illness Time Seen by Provider: 11/22/24 10:27 Source: patient, family Exam Limitations: no limitations Patient Subjective Stated Complaint: pt here for left flank pain for 2 weeks getting worse today,she has hx of kidney stones Triage Nursing Assessment: pt alert, walked in, resp easy, skin w/d/p. grimacing at times. abd soft, no edema noted, moves all ext well Physician History: This is a 54-year-old white female patient of nurse practitioner Bereket who presents to the emergency department by private vehicle with a 2-week history of worsening left flank pain. 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 She has a history of multiple lithotripsies on both sides. Patient has a history of osteoporosis, anemia, hypertension, COPD and history of stroke in the past. Patient states that she was told by her urologist to go directly to [facility] but states that she could not make it there today. Patient denies chest pain. She denies abdominal pain. She has no shortness of breath Timing/Duration: week(s) (2), worse Activites at Onset: none Quality: sharpness, stabbing Onset Location: left flank Pain Radiation: left flank Severity of Pain-Max: moderate Severity of Pain-Current: moderate Sexual intercourse history: non-contributory Modifying Factors: Improves With: nothing Associated Symptoms: nausea Allergies/Adverse Reactions: No Known Drug Allergies Allergy (Verified 11/22/24 10:05) Home Medications: Dextroamphetamine/Amphetamine [Adderall 15 mg Tablet] 20 mg PO TID 07/15/17 [History] Citalopram Hydrobromide [Citalopram HBr] 40 mg PO DAILY 12/26/19 [History] Ropinirole HCl 1 mg PO HS 12/26/19 [History] Metoprolol Succinate 50 mg [Toprol Xl 50 MG] 50 mg PO DAILY 07/30/21 [History] Alendronate Sodium 70 mg [Fosamax 70 MG] 70 mg PO WEEKLY 01/28/24 [History] Ferrous Sulfate [Ferosul] 325 mg PO DAILY 01/28/24 [History] Hydrocodone/Acetaminophen [Hydrocodone-Acetamin 10-325 mg] 1 each PO TID 01/28/24 [History] Hx Tetanus, Diphtheria Vaccination/Date Given: No Hx Influenza Vaccination/Date Given: Yes Hx Pneumococcal Vaccination/Date Given: No Travel Risk - International Travel Have you traveled outside of the country in past 3 weeks: No - Emerging Infectious Disease Are you exhibiting symptoms associated with any current EIDs: No - Review of Systems Constitutional: No Symptoms Eyes: No Symptoms Ears, Nose, & Throat: No Symptoms Respiratory: No Symptoms Cardiac: No Symptoms Abdominal/Gastrointestinal: No Symptoms Genitourinary Symptoms: Flank Pain (Left flank pain) Musculoskeletal: No Symptoms Skin: No Symptoms Neurological: No Symptoms Psychological: No Symptoms Endocrine: No Symptoms Hematologic/Lymphatic: No Symptoms Immunological/Allergic: No Symptoms All Other Systems: Reviewed and Negative - Past Medical History Pertinent Past Medical History: Yes Neurological History: Stroke ENT History: No Pertinent History Cardiac History: Hypertension Respiratory History: COPD Endocrine Medical History: Hyperthyroidism Musculoskeletal History: Arthritis, Osteoporosis GI Medical History: Gallbladder Disease History: Other Psycho-Social History: Other Female Reproductive Disorders: Cervical Cancer Other Medical History: 2019 lacunar stroke. Mitral prolapse. January dx-bleeding disorder - Past Surgical History Past Surgical History: Yes Neuro Surgical History: No Pertinent History Cardiac: No Pertinent History Respiratory: No Pertinent History Gastrointestinal: Cholecystectomy Genitourinary: Other Musculoskeletal: No Pertinent History Female Surgical History: Other Other Surgical History: Cervical dysplasia with ablation., skin cancer removal and plastic surgery on left eye. lithotripsy - Social History Smoking Status: Former smoker How long have you smoked: 4yrs+ Exposure to second hand smoke: Yes Drug Use: none Patient Lives Alone: No - Social Determinants of Health Will the patient participate in the screening: Declined to provide - Nursing Vital Signs Nursing Vital Signs: Initial Vital Signs Blood Pressure 128/97 11/22/24 10:06 O2 Sat by Pulse Oximetry 100 11/22/24 10:06 Pain Scale Pain Intensity 8 - Physical Exam General Appearance: no apparent distress, alert, anxiety Eye Exam: PERRL/EOMI, eyes nml inspection Ears, Nose, Throat Exam: normal ENT inspection, moist mucous membranes Neck Exam: normal inspection, non-tender, supple, full range of motion Respiratory Exam: normal breath sounds, lungs clear, airway intact, No chest tenderness, No respiratory distress Cardiovascular Exam: regular rate/rhythm, normal heart sounds, normal peripheral pulses Gastrointestinal/Abdomen Exam: soft, normal bowel sounds, No tenderness Pelvic Exam: not done Rectal Exam: not done Back Exam: normal inspection, normal range of motion, CVA tenderness (Left side), No vertebral tenderness Extremity Exam: normal inspection, normal range of motion, pelvis stable Neurologic Exam: alert, oriented x 3, cooperative, gate guard II-XII nml as tested, nml cerebellar function, nml station & gait, sensation nml Skin Exam: normal color, warm, dry Lymphatic Exam: No adenopathy SpO2 Interpretation: normal SpO2: 98 O2 Delivery: Room Air - Course Nursing assessment & vital signs reviewed: Yes Ordered Tests: Active Orders 24 hr Category Date Time Status IV Insertion STAT Care 11/22/24 10:27 Active ABDOMEN AND PELVIS W/0 CONTRAS [CT] Stat Exams 11/22/24 10:27 Taken AMYLASE Stat Lab 11/22/24 10:46 Completed CBC W DIFF Stat Lab 11/22/24 10:46 Completed CMP Stat Lab 11/22/24 10:46 Completed LIPASE Stat Lab 11/22/24 10:46 Completed UA W/RFX UR CULTURE Stat Lab 11/22/24 10:29 Completed Medication Summary Generic Name Dose Route Start Last Admin Trade Name Freq PRN Reason Stop Dose Admin Sodium Chloride 1,000 mls @ 100 mls/hr 11/22/24 12:30 Sodium Chloride 0.9% 1000 Ml IV 12/22/24 12:29 .Q10H AMANDA Discontinued Medications Generic Name Dose Route Start Last Admin Trade Name Freq PRN Reason Stop Dose Admin Hydromorphone HCl 1 mg 11/22/24 10:27 11/22/24 10:41 Hydromorphone 1 Mg/1ml Inj IV 11/22/24 10:28 Not Given STAT ONE Hydromorphone HCl Confirm 11/22/24 10:33 Hydromorphone 1 Mg/1ml Inj Administered 11/22/24 10:34 Dose 1 mg .ROUTE .STK-MED ONE Sodium Chloride 1,000 mls @ 999 mls/hr 11/22/24 10:27 11/22/24 10:34 Sodium Chloride 0.9% 1000 Ml IV 11/22/24 11:27 999 mls/hr .Q1H1M STA Administration Sodium Chloride Confirm 11/22/24 10:33 Sodium Chloride 0.9% 1000 Ml Administered 11/22/24 10:34 Dose 1,000 mls @ ud .ROUTE .STK-MED ONE Ketorolac Tromethamine 30 mg 11/22/24 10:27 11/22/24 10:35 Ketorolac Tromethamine 30 Mg/Ml Inj IV 11/22/24 10:28 30 mg STAT ONE Administration Ketorolac Tromethamine Confirm 11/22/24 10:33 Ketorolac Tromethamine 30 Mg/Ml Inj Administered 11/22/24 10:34 Dose 30 mg .ROUTE .STK-MED ONE Ketorolac Tromethamine Confirm 11/22/24 10:42 Ketorolac Tromethamine 30 Mg/Ml Inj Administered 11/22/24 10:43 Dose 30 mg .ROUTE .STK-MED ONE Ondansetron HCl 4 mg 11/22/24 10:27 11/22/24 10:34 Ondansetron Hcl 4 Mg/2 Ml Vial IV 11/22/24 10:28 4 mg STAT ONE Administration Ondansetron HCl Confirm 11/22/24 10:33 Ondansetron Hcl 4 Mg/2 Ml Vial Administered 11/22/24 10:34 Dose 4 mg .ROUTE .STK-MED ONE Lab/Rad Data: Laboratory Result Diagrams 11/22/24 10:46 11/22/24 10:46 Laboratory Results 11/22/24 11/22/24 11/22/24 Range/Units 10:46 10:46 10:29 WBC 8.8 (3.98-10.04) x10^3/uL RBC 4.34 (3.93-5.22) x10^6/uL Hgb 13.1 (11.2-15.7) g/dL Hct 39.1 (34.1-44.9) % MCV 90.1 (79.4-94.8) fL MCH 30.2 (25.6-32.2) pg MCHC 33.5 (32.2-35.5) g/dL RDW 13.2 (11.7-14.4) % Plt Count 297 (182-369) x10^3/uL MPV 10.5 (9.4-12.3) fL Gran % 67.5 (34.0-71.1) % Immature Gran % (Auto) 0.5 H (0.001-0.429) % Nucleat RBC Rel Count 0.0 (0.00-0.2) % Eos # (Auto) 0.16 (0.04-0.36) x10^3/uL Immature Gran # (Auto) 0.04 H (0.001-0.031) x10^3u/L Absolute Lymphs (auto) 1.93 (1.18-3.74) x10^3/uL Absolute Monos (auto) 0.69 (0.24-0.86) x10^3/uL Absolute Nucleated RBC 0.00 (0.00-0.012) x10^3u/L Lymphocytes % 21.8 (19.3-51.7) % Monocytes % 7.8 (4.7-12.5) % Eosinophils % 1.8 (0.7-5.8) % Basophils % 0.6 (0.1-1.2) % Absolute Granulocytes 5.97 (1.56-6.13) x10^3/uL Basophils # 0.05 (0.01-0.08) x10^3/uL Sodium 137 (135-145) mmol/L Potassium 3.8 (3.5-5.1) mmol/L Chloride 101 (98-107) mmol/L Carbon Dioxide 25 (22-30) mmol/L Anion Gap 14.6 (5-15) MEQ/L BUN 16 (7-17) mg/dL Creatinine 1.31 H (0.52-1.04) mg/dL Estimated GFR 48.1 ML/MIN Glucose 124 H (74-106) mg/dL Calcium 9.5 (8.4-10.2) mg/dL Total Bilirubin 0.70 (0.2-1.3) mg/dL AST 40 H (14-36) U/L ALT 17 (0-35) U/L Alkaline Phosphatase 84 (38-126) U/L Serum Total Protein 8.2 (6.3-8.2) g/dL Albumin 5.0 (3.5-5.0) g/dL Amylase 70 (30-110) U/L Lipase 53 (23-300) U/L Urine Color Yellow (Yellow) Urine Appearance Clear (Clear) Urine pH 5.5 (4.6-8.0) Ur Specific Brandon >=1.030 A (1.005-1.030) Urine Protein Trace A (Negative) Urine Glucose (UA) Negative (Negative) mg/dL Urine Ketones Negative (Negative) Urine Blood Negative (Negative) Urine Nitrite Negative (Negative) Urine Bilirubin Negative (Negative) Urine Urobilinogen 0.2 (0.2) mg/dL Ur Leukocyte Esterase Negative (Negative) U Hyaline Cast (Auto) NONE SEEN (0-2) /LPF Urine Microscopic RBC 0-2 (0-5) /HPF Urine Microscopic WBC 6-10 A (0-5) /HPF Ur Epithelial Cells Rare (None Seen) /HPF Urine Bacteria None Seen (None Seen) /HPF Urine Culture Reflexed NO (NO) - Progress Progress: improved, re-examined Air Movement: good Progress Note: 11/22/24 10:38 My medical decision making and the assignment of moderate complexity to this patient's medical issue today is based on review of the patient's past medical history, review of the patient's medication list, reviewed patient drug allergy list, history present illness and physical findings on examination. The workup in this patient includes placement of an intravenous line, infusion of normal saline solution, infusion of Zofran, Dilaudid and Toradol, CBC, CMP, amylase, lipase, urinalysis and CT scan of the abdomen pelvis without contrast. Differential diagnosis includes but is not limited to muscle skeletal pain, pyelonephritis, nephrolithiasis, ureterolithiasis 11/22/24 11:06 I interpreted the patient's laboratory data results. Based on the laboratory data results, there are no acute, emergent medical issues. 11/22/24 12:23 I discussed the patient's laboratory data results with her. The CAT scan of the abdomen pelvis radiology report is pending. Patient does not want to wait any longer for the results. She has a birthday libertarian to go to. She will sign out AGAINST MEDICAL ADVICE. Patient is awake she is alert she is oriented and she understands there may be risks of her leaving without full workup results. She will sign the AGAINST MEDICAL ADVICE form Blood Culture(s) Obtained: No Antibiotics given: No Counseled pt/family regarding: lab results, diagnosis, need for follow-up - Departure Departure Disposition: AMA Clinical Impression: Left flank pain Condition: Stable Critical Care Time: No Referrals: NURIA PERALES NP [Primary Care Provider] - Follow up/PCP as directed Additional Instructions: If there are no contraindications use Tylenol and ibuprofen for pain control. Call your urologist and cotton inspector as well as your primary care provider tomorrow, 11/23/2024 to make arrangements for follow-up appointment to be seen in the next 3 to 5 days.
[2024-11-22] MEDS ORDERED: Hydromorphone 1 mg/ml Injection ONE (10:33)
[2024-11-22] MEDS ORDERED: Sodium Chloride 0.9% 1000 ML 1,000 ML ONE (10:33)
[2024-11-22] MEDS ORDERED: TORAdol 30 mg Injection ONE ×2 (10:33→10:42)
[2024-11-22] MEDS ORDERED: Zofran 4 MG/2 ML VIAL ONE (10:33)
[2024-11-22] MEDS: Hydromorphone 1 mg/ml Injection IV ONE (10:34)
[2024-11-22] MEDS: Sodium Chloride 0.9% 1000 ML 1,000 ML IV STA (10:34)
[2024-11-22] MEDS: Zofran 4 MG/2 ML VIAL IV ONE (10:34)
[2024-11-22] MEDS: TORAdol 30 mg Injection IV ONE (10:35)
[2024-11-22 10:47] LABS: Absolute Neutrophil Ct (ANC) 5.97 x10^3/uL (1.56-6.13); BASOPHIL % 0.6 % (0.1-1.2); Basophil (Absolute #) 0.05 x10^3/uL (0.01-0.08); Eosinophil % 1.8 % (0.7-5.8); Eosinophil (Absolute #) 0.16 x10^3/uL (0.04-0.36); Hematocrit 39.1 % (34.1-44.9); Hemoglobin 13.1 g/dL (11.2-15.7); IMMATURE GRAN # 0.04 x10^3u/L (0.001-0.031); IMMATURE GRAN % 0.5 % (0.001-0.429); Lymphocyte (Absolute #) 1.93 x10^3/uL (1.18-3.74); Lymphocytes % 21.8 % (19.3-51.7); Mean Cell Volume 90.1 fL (79.4-94.8); Mean Corpuscular Hemoglobin 30.2 pg (25.6-32.2); Mean Corpuscular Hgb Concent. 33.5 g/dL (32.2-35.5); Mean Platelet Volume 10.5 fL (9.4-12.3); Monocyte (Absolute #) 0.69 x10^3/uL (0.24-0.86); Monocytes % 7.8 % (4.7-12.5); Neutrophil % 67.5 % (34.0-71.1); Platelet Count 297 x10^3/uL (182-369); Red Blood Count 4.34 x10^6/uL (3.93-5.22); Red Cell Distribution Width 13.2 % (11.7-14.4); White Blood Count 8.8 x10^3/uL (3.98-10.04)
[2024-11-22 10:58] LABS: Appearance Clear (Clear); Bacteria None Seen /HPF (None Seen); Bilirubin Negative (Negative); Blood Negative (Negative); Epithelial Cells Rare /HPF (None Seen); Glucose, Urine Negative (Negative); Hyaline Casts NONE SEEN /LPF (0-2); Ketones Negative (Negative); Leukocyte Esterase Negative (Negative); Nitrite Negative (Negative); Ph 5.5 (4.6-8.0); Protein,Urine Dip Trace (Negative); RBC 0-2 /HPF (0-5); Specific Gravity >=1.030 (1.005-1.030); Urobilinogen 0.2 mg/dL (0.2)
[2024-11-22 11:00] LABS: ANION GAP 14.6 MEQ/L (5-15); BILIRUBIN,TOTAL 0.7 mg/dL (0.2-1.3); Calcium 9.5 mg/dL (8.4-10.2); Creatinine 1 1.31 mg/dL (0.52-1.04); EST GLOMERULAR FILTRATION RATE 48.1 ML/MIN; Potassium 3.8 mmol/L (3.5-5.1); Total Protein 8.2 g/dL (6.3-8.2)
[2024-11-22 11:25] VITALS: PULSE 81
[2024-11-22] MEDS ORDERED: Sodium Chloride 0.9% 1000 ML 1,000 ML IV SCH (12:30)
[2024-11-22 12:35] VITALS: BP 98/74
--- NOTE | 2024-11-24 09:36 | XRAY ---
CLINICAL HISTORY: Left flank pain COMPARISON: No prior studies are available for comparison. TECHNIQUE: Non-contrast CT of the abdomen and pelvis was performed, with the following protocol: axial images, and reconstructed coronal and sagittal images. No intravenous contrast was administered. One of the following dose reduction techniques was utilized for this exam: Automated exposure control, adjustment of the mA and/or kV according to patient size, and use of iterative reconstruction. DLP: 359.9 mGy-cm, CTDI: 7.10 mGy. FINDINGS: Abdomen: Liver: Normal in size, shape, and density. No focal lesions, cysts, or masses were identified apart from a few tiny calcific granulomas. Gallbladder and Biliary System: The gallbladder is surgically removed. No intrahepatic or extrahepatic biliary dilatation. Pancreas: Pancreatic head, body, and tail are visualized and appear normal in size and density. No pancreatic masses or calcifications were noted. Spleen: Normal in size, shape, and density. Multiple punctate splenic calcific granulomas are seen. A 1.3 cm splenunculus is seen at the upper pole. Kidneys and Adrenal Glands: Both kidneys are normal in size, shape, and position. Cortical thickness is within normal limits. A tiny 2 mm calculus is seen at the lower pole of the right kidney, however no hydronephrosis. A 12x[address] density 1440 HU is seen at the lower pole of the left kidney with focal lower polar caleactasis and cortical thinning. Adrenal glands are unremarkable. Appendix: The appendix is normal in size without issa appendiceal fat stranding and without an appendicolith. No evidence of appendiceal abscess or perforation. Pelvis: Urinary Bladder is minimally filled. Uterus: Normal in size and contour. No masses or abnormal thickening. Ovaries: Not well visualized but no gross abnormalities noted. Peritoneal and Retroperitoneal Structures: No free fluid or abnormal fluid collections were identified within the abdomen or pelvis. No lymphadenopathy was noted. Bowel: 1-2 colonic diverticulae are seen along the sigmoid colon, however, no pericolonic fat stranding or abscess. No evidence of bowel obstruction or wall thickening. An oval-shaped radiodensity is seen in the second part of the duodenum - tablet/foreign body. A tiny umbilical fat containing an umbilical hernia is seen. Multiple pelvic phleboliths are seen. Bones and Soft Tissues: The lumbar spine shows scoliotic deformity with convexity towards the right along with significant degenerative changes. Grade II anterolisthesis of L5 over S1 with bilateral pars interarticular defect. No fractures or abnormal masses were identified. Slices through lung bases are clear. IMPRESSION: Overall, non-contrast CT abdomen and pelvis demonstrates: 1. Left renal calculus with focal lower polar caleactasis and cortical thinning. 2. Right renal tiny non-obstructive calculus. Electronically Signed by: India Wick MD. (11/22/2024 11:15:54 EST)
== END 2024-11-22 12:36 | disposition left against medical advice (07) ==
LOC: ED 09:56
DX: R10.9 Unspecified abdominal pain (principal); I10 Essential (primary) hypertension; Z79.899 Other long term (current) drug therapy; Z87.442 Personal history of urinary calculi
CPT/HCPCS: 36415; 74176; 80053; 81001; 82150; 83690; 85025; 96360; 96374; 96375; 99284; J1171; J1885; J2405